=== PATIENT | female | born 2000 | race Caucasian/White ===

== ENCOUNTER → 2018-05-14 | Outpatient (CLI) | payer BC, MEDICAID ==
--- NOTE | 2018-05-15 09:19 | Diagnostic Imaging Report ---
INDICATION: Size and dates TECHNIQUE: Multiple real-time grayscale images were obtained over the gravid uterus. COMPARISON: 03/26/2018 FINDINGS: There is a single living intrauterine in breech presentation. Normal volume of amniotic fluid. Placenta is anterior. No previa. The anatomical survey is limited due to position. Four-chamber heart and spine were not well seen. Remainder of the anatomical survey is unremarkable. This includes a three-vessel cord. The heart rate is 147 beats per minute and regular. The maternal adnexa is unremarkable. The biometry correlates with gestational age of 19 weeks 5 days. Biometrical measurements are as follows: Biparietal 4.4 cm, age 19 weeks 3 days. Head circumference 16.4 cm, age 19 weeks 1 days. Abdominal circumference 15.2 cm, age 20 weeks 3 days. Femur length 3.1 cm, age 19 weeks 6 days. Sonographic estimate age: 19 weeks 5 days. Sonographic estimated date of delivery: 10/03/18. Estimated Weight: 324 gm (+/- 47 gm). LMP percentile: 52%. heart rate: 147 beats per minute. number: 1 of 1. IMPRESSION: Single living intrauterine with sonographically gestational age of 19 weeks 5 days and estimated confinement of October 03, 2018 Limited anatomical survey due to positioning. Four chamber heart and spine were not well visualized. Dictated by: Dictated on workstation # [id number]
== END ==
LOC: RAD 16:00
PROVIDERS: ATTEND Obstetrics & Gynecology
DX: O26.842 Uterine size-date discrepancy, second trimester (principal); Z3A.19 19 weeks gestation of pregnancy
CPT/HCPCS: 76805

== ENCOUNTER 2018-09-05 22:22 | Outpatient (CLI) | payer BC, MEDICAID ==
[~2018-09-05] VITALS: Ht 172.7 cm; Wt 79.1 kg
[2018-09-06] MEDS ORDERED: D5 LR IV SOLUTION 1,000 ML IV SCH (00:45)
[2018-09-06] MEDS ORDERED: D5 LR IV SOLUTION 1,000 ML IV ONE ×2 (00:46→03:01)
[2018-09-06 01:17] LABS: BASOPHILS % (AUTO) 0 % (0-10); EOSINOPHILS % (AUTO) 0 % (0-10); HEMATOCRIT 33 % (35-52); HEMOGLOBIN 11.4 G/DL (11.5-16.0); LYMPHOCYTES # (AUTO) 1.5 X 10^3 (1.0-4.0); LYMPHOCYTES % (AUTO) 13 % (12-44); MEAN CORPUSCULAR HEMOGLOBIN 32 PG (25-34); MEAN CORPUSCULAR HGB CONC 35 G/DL (32-36); MEAN CORPUSCULAR VOLUME 92 FL (80-99); MEAN PLATELET VOLUME 9.5 FL (7.4-10.4); MONOCYTES # (AUTO) 1.2 X 10^3 (0.0-1.0); MONOCYTES % (AUTO) 10 % (0-12); NEUTROPHILS # (AUTO) 8.9 X 10^3 (1.8-7.8); NEUTROPHILS % (AUTO) 76 % (42-75); PLATELET COUNT 222 10^3/uL (130-400); RED BLOOD COUNT 3.59 10^6/uL (4.35-5.85); WHITE BLOOD COUNT 11.7 10^3/uL (4.3-11.0)
[2018-09-06 01:40] VITALS: BP 108/53
[2018-09-06 02:17] LABS: BILIRUBIN,URINE NEGATIVE (NEGATIVE); CLARITY,URINE SLIGHTLY CLOUDY; COLOR,URINE YELLOW; GLUCOSE, URINE (UA) NEGATIVE (NEGATIVE); KETONES,URINE NEGATIVE (NEGATIVE); LEUKOCYTE ESTERASE ,URINE 1+ (NEGATIVE); NITRITE,URINE NEGATIVE (NEGATIVE); PH,URINE 8 (5-9); PROTEIN,URINE NEGATIVE (NEGATIVE); UROBILINOGEN,URINE NORMAL (NORMAL)
[2018-09-06 02:25] LABS: WBC,URINE 0-2 /HPF
[2018-09-06 02:26] LABS: AMORPHOUS SEDIMENT,UR MOD AMOR PHOSPHATE /LPF; BACTERIA,URINE TRACE /HPF
[2018-09-06] MEDS: D5 LR IV SOLUTION 1,000 ML IV SCH ×2 (03:15→09:22)
[2018-09-06] MEDS ORDERED: BUTORPHANOL INJ 2 MG/ML (STADOL) VIAL ONE (03:43)
[2018-09-06] MEDS ORDERED: BUTORPHANOL INJ 2 MG/ML (STADOL) VIAL IV ONE (03:45)
[2018-09-06 05:45] VITALS: BP 118/71
[2018-09-06 08:08] VITALS: BP 125/67
--- NOTE | 2018-09-06 09:15 | History & Physical ---
History and Physical Date Seen by Provider: Sep 06, 2018 Time Seen by Provider: 09:10 This patient is a 18-year-old G1 white female patient of Dr. Moura. She was admitted last evening with complaint of abdominal pain and contractions. She was found to have a fairly significant vaginal bleeding. This bleeding apparently began after her presentation and after her cervix was checked. Patient denies rupture membranes or bleeding prior to presentation. Patient has had no specific problems with this . Her appetite is normal she denies urinary frequency pain or urgency. She's had no problems with diarrhea or constipation. Her pain has waxed and waned through the night.. She has had inconsistent and irregular contractions. She has shown no cervical change during the period of evaluation. She indicates that her pain has improved somewhat this morning. She currently describes more of a diffuse abdominal and pelvic pain from the right and left lateral upper quadrants down to the lower quadrants and inguinal ligaments and pelvis. Allergies are none Medications are vitamins Medical social and surgical histories are per the antepartum record HEENT exam is normal. Patient does not appear uncomfortable. Neck is supple no lymphadenopathy no thyromegaly Abdomen is gravid soft nontender nondistended. There is no guarding rebound or rigidity. Extremities show no clubbing or cyanosis. There is no Homans sign. Pelvic exam per labor and delivery nurse on serial exams that show a cervix 1 cm dilated 60 percent effaced with a vertex presentation and no change on serial exams monitor shows a normal heart rate pattern with no decelerations and irregular inconsistent contractions Laboratory Tests Test 09/06/18 01:00 09/06/18 02:00 Range/Units White Blood Count 11.7 H 4.3-11.0 10^3/uL Red Blood Count 3.59 L 4.35-5.85 10^6/uL Hemoglobin 11.4 L 11.5-16.0 G/DL Hematocrit 33 L 35-52 % Mean Corpuscular Volume 92 80-99 FL Mean Corpuscular Hemoglobin 32 25-34 PG Mean Corpuscular Hemoglobin Concent 35 32-36 G/DL Red Cell Distribution Width 13.0 10.0-14.5 % Platelet Count 222 130-400 10^3/uL Mean Platelet Volume 9.5 7.4-10.4 FL Neutrophils (%) (Auto) 76 H 42-75 % Lymphocytes (%) (Auto) 13 12-44 % Monocytes (%) (Auto) 10 0-12 % Eosinophils (%) (Auto) 0 0-10 % Basophils (%) (Auto) 0 0-10 % Neutrophils # (Auto) 8.9 H 1.8-7.8 X 10^3 Lymphocytes # (Auto) 1.5 1.0-4.0 X 10^3 Monocytes # (Auto) 1.2 H 0.0-1.0 X 10^3 Eosinophils # (Auto) 0.0 0.0-0.3 10^3/uL Basophils # (Auto) 0.0 0.0-0.1 10^3/uL Urine Color YELLOW Urine Clarity SLIGHTLY CLOUDY Urine pH 8 5-9 Urine Specific [place] 1.010 L 1.016-1.022 Urine Protein NEGATIVE NEGATIVE Urine Glucose (UA) NEGATIVE NEGATIVE Urine Ketones NEGATIVE NEGATIVE Urine Nitrite NEGATIVE NEGATIVE Urine Bilirubin NEGATIVE NEGATIVE Urine Urobilinogen NORMAL NORMAL MG/DL Urine Leukocyte Esterase 1+ H NEGATIVE Urine RBC (Auto) 5+ H NEGATIVE Urine RBC 2-5 H /HPF Urine WBC 0-2 /HPF Urine Squamous Epithelial Cells 2-5 /HPF Urine Crystals PRESENT H /LPF Urine Amorphous Sediment MOD YUMIKO PHOSPHATE H /LPF Urine Bacteria TRACE /HPF Urine Casts NONE /LPF Urine Mucus NEGATIVE /LPF Urine Culture Indicated NO Assessment and plan 36 week intrauterine with abdominal pain and pelvic pain and vaginal bleeding. Concern has been for the possibility of placental abruption. History exam are consistent with myalgia of . Patient's bleeding has improved. We will obtain an ultrasound to evaluate the fetus the uterine anatomy and pelvic anatomy as well as the maternal kidneys and ureters. At this point we will continue supportive care and observation. Further management will be predicated on the ultrasound results and her status and condition through the day 36 week with threatened labor Allergies and Home Medications Allergies Coded Allergies: No Known Drug Allergies (Unverified , 09/05/18) Patient Home Medication List Home Medication List Reviewed: Yes MEG KIRK MD Sep 06, 2018 09:15
[2018-09-06] MEDS ORDERED: CHLORASEPTIC LOZENGE MM PRN (11:30)
--- NOTE | 2018-09-06 13:23 | Diagnostic Imaging Report ---
INDICATION: , vaginal bleeding with pain. TECHNIQUE: Multiple real-time grayscale images were obtained over the gravid uterus. COMPARISON: 05/14/2018 FINDINGS: Randolph gestation is in cephalic position today measuring 36 weeks 6 days reflecting normal growth from initial exam. The placenta is anterior with no abruption or previa. Heart rate 132 beats per minute. LMP percentile 62nd percent. Amniotic fluid index 8.5 within normal limits. Randolph gestation receives a normal 8 out of 8 biophysical profile. Biometrical measurements are as follows: Biparietal 8.85 cm, age 35 weeks 6 days. Head circumference 32.91 cm, age 37 weeks 3 days. Abdominal circumference 32.53 cm, age 36 weeks 4 days. Femur length 7.23 cm, age 37 weeks 1 days. Sonographic estimate age: 36 weeks 6 days. Sonographic estimated date of delivery: 09/28/18. Estimated Weight: 2987 gm (+/- 436 gm). LMP percentile: 62%. heart rate: 132 beats per minute. number: 1 of 1. IMPRESSION: 1. Normal 8 out of 8 biophysical profile. 2. Cephalic position randolph viable IUP showed normal interval growth. No pathological finding was revealed. Dictated by: Dictated on workstation # [id number]
--- NOTE | 2018-09-06 13:24 | Diagnostic Imaging Report ---
PROCEDURE: US Renal Bilateral. TECHNIQUE: Multiple real-time grayscale images were obtained over the kidneys in various projections bilaterally. INDICATION: Vaginal bleeding and pelvic pain. FINDINGS: The right kidney measures 13.3 cm in length and the left 12.5 cm in length. There is mild hydronephrosis present bilaterally. At the urinary bladder, the right ureteral jet was demonstrated. The left could not be visualized. The ureters are not evident within the pelvis. The appendix could not be sonographically demonstrated. IMPRESSION: 1. Mild bilateral hydronephrosis. There is visualization of the right ureteral jet but not the left. This is favored to be related to the patient's current gestation. The distal ureters cannot be visualized within the pelvis. The appendix was not sonographically visible. Dictated by: Dictated on workstation # [id number]
[2018-09-10] MEDS ORDERED: DOCU100C37 PO (08:10)
[2018-09-10] MEDS ORDERED: ACHD5005 PO (08:10)
[2018-09-10] MEDS ORDERED: IBUP-844 PO (08:10)
[2018-09-10] MEDS ORDERED: FERR325T18 PO (08:10)
== END 2018-09-06 14:38 | disposition home or self-care (01) ==
LOC: WSo 22:22 → LDRP 22:22 → WSo 09-06 14:38
PROVIDERS: ATTEND Obstetrics & Gynecology
DX: O47.03 False labor before 37 completed weeks of gestation, third trimester (principal); Z3A.36 36 weeks gestation of pregnancy
CPT/HCPCS: 36415; 76770; 76805; 76819; 81000; 85025; 96361; 96374; 99214

== ENCOUNTER 2018-09-10 01:10 | Inpatient (IN) | payer BC, MEDICAID ==
[~2018-09-10] VITALS: Ht 172.7 cm; Wt 79.1 kg
[2018-09-10] VITALS (59 sets, daily range): BP systolic 105–139; BP diastolic 55–85
--- NOTE | 2018-09-10 01:10 | NUR ---
MICHELLE MADERA presented to unit via wheelchair from ED, accompanied by mother, with c/o POSS CONTRACTIONS and leaking of fluid 37 WKS PREG. MICHELLE MADERA weighed, gowned, voided, and to bed. EFHM and TOCO applied, VS taken. MICHELLE MADERA oriented to bed controls, call light, TV, heat, and A/C controls.
--- NOTE | 2018-09-10 01:35 | NUR ---
Dr. Griffin called and informed of pt's arrival and status. Dr. Griffin states that she can be admitted, but Dr. Moura should be called to take over cares.
--- NOTE | 2018-09-10 01:37 | NUR ---
Dr. Moura called and informed that pt is here. , 36/. Informed that pt is ruptured and elvira every 1-4 minutes. Talked about FHT's and GBS status. Dr. Moura states that she can be admitted and that she can have an epidural whenever she wants it.
[2018-09-10] MEDS ORDERED: NS IV 1000 ML 1,000 ML IV SCH (01:43)
[2018-09-10] MEDS ORDERED: D5 LR IV SOLUTION 1,000 ML IV SCH ×2 (01:43)
[2018-09-10] MEDS ORDERED: D5 LR IV SOLUTION 1,000 ML IV ONE (01:45)
[2018-09-10] MEDS ORDERED: MINERAL OIL CONCENTRATE 99.9% 15 ML UDC PO PRN (01:45)
[2018-09-10 02:02] LABS: BASOPHILS % (AUTO) 0 % (0-10); EOSINOPHILS # (AUTO) 0.1 10^3/uL (0.0-0.3); EOSINOPHILS % (AUTO) 1 % (0-10); HEMATOCRIT 34 % (35-52); HEMOGLOBIN 11.6 G/DL (11.5-16.0); LYMPHOCYTES # (AUTO) 2.3 X 10^3 (1.0-4.0); LYMPHOCYTES % (AUTO) 17 % (12-44); MEAN CORPUSCULAR HEMOGLOBIN 31 PG (25-34); MEAN CORPUSCULAR HGB CONC 34 G/DL (32-36); MEAN CORPUSCULAR VOLUME 90 FL (80-99); MEAN PLATELET VOLUME 9.3 FL (7.4-10.4); MONOCYTES # (AUTO) 1.2 X 10^3 (0.0-1.0); MONOCYTES % (AUTO) 9 % (0-12); NEUTROPHILS # (AUTO) 9.9 X 10^3 (1.8-7.8); NEUTROPHILS % (AUTO) 74 % (42-75); PLATELET COUNT 246 10^3/uL (130-400); RED BLOOD COUNT 3.75 10^6/uL (4.35-5.85); RED CELL DISTRIBUTION WIDTH 12.9 % (10.0-14.5); WHITE BLOOD COUNT 13.5 10^3/uL (4.3-11.0)
--- OUTSIDE RECORDS SUMMARY | 2018-09-10 02:10 | XMS REPORT | Referral Summary ---
Author Author [facility] Organization [facility] Address Unknown Phone Unavailable Care Team Providers Care Airline Pilot Flight Instructor Name Role Phone No PCP, Pt States PCP Encounter VC Date(s): 12/03/17 - 12/03/17 [facility] [address] [place] [address] [place] Encounter Diagnosis Cervicitis (Discharge Diagnosis) - 12/03/17 PID (pelvic inflammatory disease) (Discharge Diagnosis) - 12/03/17 Discharge Disposition: 01-Home or Self Care Attending Physician: Jason Gonzalez MD Admitting Physician: Jason Gonzalez MD Vital Signs Most recent to 1 oldest [Reference Range]: Temperature Oral 36.5 degC [35.8-37.3 degC] (12/03/17 8:38 PM) Peripheral Pulse 63 bpm Rate [60-100 bpm] (12/03/17 8:38 PM) Respiratory Rate 22 br/min [14-20 br/min] *HI* (12/03/17 8:38 PM) Blood Pressure 128/78 mmHg [90-140/60-90 mmHg] (12/03/17 8:38 PM) SpO2 97 % (12/03/17 8:38 PM) Problem List No Known Problems Allergies, Adverse Reactions, Alerts No Known Allergies Medications doxycycline hyclate 100 mg oral tablet 100 mg 1 tabs, Oral, BID, X 10 days, # 20 tabs, 0 Refill(s) Start Date: 12/03/17 Stop Date: 12/13/17 Status: Ordered Results Chemistry Most recent to 1 oldest [Reference Range]: Screen, Negative Urine NPT (12/03/17 9:33 PM) Urinalysis Most recent to 1 oldest [Reference Range]: UA Color Straw (12/03/17 9:30 PM) UA Appear Clear (12/03/17 9:30 PM) UA pH [5.0-8.0] 6.0 (12/03/17 9:30 PM) UA Leuk Est Negative [Negative] (12/03/17 9:30 PM) UA Nitrite Negative [Negative] (12/03/17 9:30 PM) UA Protein Negative [Negative] (12/03/17 9:30 PM) UA Glucose Negative [Negative] (12/03/17 9:30 PM) UA Ketones Negative [Negative] (12/03/17 9:30 PM) UA Urobilinogen Negative [<1.0] (12/03/17 9:30 PM) UA Bili [Negative] Negative (12/03/17 9:30 PM) UA Blood [Negative] Negative (12/03/17 9:30 PM) UA Spec Grav 1.010 [1.003-1.030] (12/03/17 9:30 PM) Type Clean Catch (12/03/17 9:30 PM) Microbiology Reports TEST: Affirm Vaginitis Panel STATUS: Auth (Verified) BODY SITE: SOURCE: Cervix/Vaginal COLLECTED DATE/TIME: 12/03/17 9:15 PM Affirm Vaginitis Panel Positive for Gardnerella vaginalis Negative for Trichomonas vaginalis Negative for Simi species Immunizations No data available for this section Procedures No data available for this section Social History Social History Type Response Smoking Status Current every day smoker; Type: Cigarettes entered on: 02/27/17 Assessment and Plan No data available for this section
--- OUTSIDE RECORDS SUMMARY | 2018-09-10 02:10 | XMS REPORT | Referral Summary ---
Author Author [facility] Organization [facility] Address Unknown Phone Unavailable Encounter VC WILLS [id number] Date(s): 02/27/17 - 02/27/[address] [facility] [address] [place], [place] [address] Discharge Diagnosis: Insect bites Discharge Diagnosis: Stye external Discharge Disposition: 01-Home or Self Care Attending Physician: Ehsan Barrow DO Admitting Physician: Ehsan Barrow DO Vital Signs Most recent to 1 oldest [Reference Range]: Temperature Oral 37 degC [35.8-37.3 degC] (02/27/17 9:51 AM) Peripheral Pulse 89 bpm Rate [60-100 bpm] (02/27/17 9:51 AM) Respiratory Rate 18 br/min [14-20 br/min] (02/27/17 9:51 AM) Blood Pressure 118/75 mmHg [90-140/60-90 mmHg] (02/27/17 9:10 AM) SpO2 99 % (02/27/17 9:51 AM) Problem List No Known Problems Allergies, Adverse Reactions, Alerts No Known Allergies Medications erythromycin 0.5% ophthalmic ointment See Instructions, 0.5 inch Eye-LEFT QID x 7 days after warm compress to eye lid , # 3.5 g, 0 Refill(s) Start Date: 02/27/17 Stop Date: 03/09/17 Status: Ordered predniSONE 20 mg oral tablet 40 mg 2 tabs, Oral, Daily, X 5 days, # 10 tabs, 0 Refill(s) Start Date: 02/27/17 Stop Date: 03/04/17 Status: Ordered Results No data available for this section Immunizations No data available for this section Procedures No data available for this section Social History Social History Type Response Smoking Status Current every day smoker; Type: Cigarettes Assessment and Plan No data available for this section
--- OUTSIDE RECORDS SUMMARY | 2018-09-10 02:10 | XMS REPORT | Referral Summary ---
Author Author [facility] Address Unknown Phone Unavailable Care Team Providers Care Inside Contractor Sales Name Role Phone Ceasar Urbina PCP Encounter VC Date(s): 03/26/18 - 03/26/18 [facility] [address] [place] [address] Encounter Diagnosis Supervision of other normal , antepartum (Discharge Diagnosis) - Discharge Disposition: 01-Home or Self Care Attending Physician: Willie Baez MD Admitting Physician: Ceasar Urbina MD Vital Signs Most recent to 1 oldest [Reference Range]: Temperature Oral 36.9 degC [35.8-37.3 degC] (03/26/18 1:10 PM) Peripheral Pulse 80 bpm Rate [60-100 bpm] (03/26/18 1:10 PM) Respiratory Rate 16 br/min [14-20 br/min] (03/26/18 1:10 PM) Blood Pressure 90/50 mmHg [90-140/60-90 mmHg] (03/26/18 1:10 PM) Problem List Condition Effective Dates Status Health Status Informant (Confirmed) 12/08/17 Active Allergies, Adverse Reactions, Alerts No Known Allergies Medications 1 oral capsule 1 caps, Oral, Daily, # 30 caps, 0 Refill(s) Start Date: 03/26/18 Status: Ordered Results Hematology Most recent to 1 oldest [Reference Range]: WBC [4.8-10.8 10.0 10*3/uL 10*3/uL] (03/26/18 1:20 PM) RBC [4.00-5.20] 3.85 *LOW* (03/26/18 1:20 PM) Hgb [12.0-16.0 11.7 gm/dL gm/dL] *LOW* (03/26/18 1:20 PM) Hct [37.0-47.0 %] 34.9 % *LOW* (03/26/18 1:20 PM) MCV [82.0-99.0 fL] 90.6 fL (03/26/18 1:20 PM) MCH [27.0-32.0 pg] 30.4 pg (03/26/18 1:20 PM) MCHC [32.0-36.0 33.5 gm/dL gm/dL] (03/26/18 1:20 PM) RDW [11.5-14.5 %] 12.4 % (03/26/18 1:20 PM) Platelet [150-400 196 10*3/uL 10*3/uL] (03/26/18 1:20 PM) MPV [8.8-14.8 fL] 10.7 fL (03/26/18 1:20 PM) Immature 0.1 % Granulocytes (03/26/18 1:20 PM) [0.0-1.0 %] Neutrophils [51-75 69 % %] (03/26/18 1:20 PM) Lymphocytes [20-46 22 % %] (03/26/18 1:20 PM) Monocytes [4-11 %] 7 % (03/26/18 1:20 PM) Eosinophils [0-4 %] 1 % (03/26/18 1:20 PM) Basophils [0-2 %] 0 % (03/26/18 1:20 PM) Neutro Absolute 6.89 [1.90-7.00] (03/26/18 1:20 PM) Lymph Absolute 2.24 [0.80-3.30] (03/26/18 1:20 PM) Labette Absolute 0.72 [0.30-1.00] (03/26/18 1:20 PM) Eos Absolute 0.12 [0.00-0.50] (03/26/18 1:20 PM) Baso Absolute 0.02 [0.00-0.20] (03/26/18 1:20 PM) Nucleated RBC 0.0 /100 WBC Automated [0 /100 (03/26/18 1:20 PM) WBC] Chemistry Most recent to 1 oldest [Reference Range]: Glucose Lvl [70-99 91 mg/dL mg/dL] (03/26/18 1:20 PM) U Beta hCG Ql Negative (03/26/18 1:00 PM) Hep Bs Ag Negative (03/26/18 1:20 PM) HIV 1 and 2 Abs Negative (03/26/18 1:20 PM) Urinalysis Most recent to 1 oldest [Reference Range]: UA Color Yellow (03/26/18 1:00 PM) UA Appear Clear (03/26/18 1:00 PM) UA pH [5.0-8.0] 6.0 (03/26/18 1:00 PM) UA Leuk Est Pos 2+ [Negative] *ABN* (03/26/18 1:00 PM) UA Nitrite Negative [Negative] (03/26/18 1:00 PM) UA Protein Negative [Negative] (03/26/18 1:00 PM) UA Glucose Negative [Negative] (03/26/18 1:00 PM) UA Ketones Negative [Negative] (03/26/18 1:00 PM) UA Urobilinogen 0.2 mg/dL [<=1.0 mg/dL] (03/26/18 1:00 PM) UA Bili [Negative] Negative (03/26/18 1:00 PM) UA Blood [Negative] Trace *ABN* (03/26/18 1:00 PM) UA Spec Grav 1.020 [1.003-1.030] (03/26/18 1:00 PM) Type Clean Catch (03/26/18 1:00 PM) Blood Bank Results Most recent to 1 oldest [Reference Range]: ABO/Rh A POS (03/26/18 1:20 PM) Antibody Screen Tube NEG (03/26/18 1:20 PM) Immunizations No data available for this section Procedures No data available for this section Social History Social History Type Response Smoking Status Current every day smoker; Type: Cigarettes entered on: 02/27/17 Assessment and Plan Extracted from: Title: Ambulatory Patient Education Author: Ceasar Urbina MD Date: 03/26/18 The following Patient Education Materials have been given to the patient: Obstetrics and Gynecology Care WHAT IS CARE? care is the process of caring for a woman before she gives . care makes sure that she and her baby remain as healthy as possible throughout . care may be provided by a human resources support specialist, [facility] practice health care provider, or a childbirth and specialist ( assayer helper). care may include physical examinations, testing, treatments, and education on nutrition, lifestyle, and social support services. WHY IS CARE SO IMPORTANT? Early and consistent care increases the chance that you and your baby will remain healthy throughout your . This type of care also decreases a baby's risk of being born too early (prematurely), or being born smaller than expected (small for gestational age). Any underlying medical conditions you may have that could pose a risk during your are discussed during care visits. You will also be monitored regularly for any new conditions that may arise during your so they can be treated quickly and effectively. WHAT HAPPENS DURING CARE VISITS? care visits may include the following: Discussion Tell your health care provider about any new signs or symptoms you have experienced since your last visit. These might include: Nausea or vomiting. Increased or decreased level of energy. Difficulty sleeping. Back or leg pain. Weight changes. Frequent urination. Shortness of breath with physical activity. Changes in your skin, such as the development of a rash or itchiness. Vaginal discharge or bleeding. Feelings of excitement or nervousness. Changes in your baby's movements. You may want to write down any questions or topics you want to discuss with your health care provider and bring them with you to your appointment. Examination During your first care visit, you will likely have a complete physical exam. Your health care provider will often examine your vagina, cervix, and the position of your uterus, as well as check your heart, lungs, and other body systems. As your progresses, your health care provider will measure the size of your uterus and your baby's position inside your uterus. He or she may also examine you for early signs of labor. Your visits may also include checking your blood pressure and, after about 10 12 weeks of , listening to your baby's heartbeat. Testing Regular testing often includes: Urinalysis. This checks your urine for glucose, protein, or signs of infection. Blood count. This checks the levels of white and red blood cells in your body. Tests for sexually transmitted infections (STIs). Testing for STIs at the beginning of is routinely done and is required in many states. Antibody testing. You will be checked to see if you are immune to certain illnesses, such as rubella, that can affect a developing fetus. Glucose screen. Around 24 28 weeks of , your blood glucose level will be checked for signs of gestational diabetes. Follow-up tests may be recommended. Group B strep. This is a bacteria that is commonly found inside a woman's vagina. This test will inform your health care provider if you need an antibiotic to reduce the amount of this bacteria in your body prior to labor and childbirth. Ultrasound. Many women undergo an ultrasound screening around 18 20 weeks of to evaluate the health of the fetus and check for any developmental abnormalities. HIV (human immunodeficiency virus) testing. Early in your , you will be screened for HIV. If you are at high risk for HIV, this test may be repeated during your third trimester of . You may be offered other testing based on your age, personal or family medical history, or other factors. HOW OFTEN SHOULD I PLAN TO SEE MY HEALTH CARE PROVIDER FOR CARE? Your care check-up schedule depends on any medical conditions you have before, or develop during, your . If you do not have any underlying medical conditions, you will likely be seen for checkups: Monthly, during the first 6 months of . Twice a month during months 7 and 8 of . Weekly starting in the 9th month of and until delivery. If you develop signs of early labor or other concerning signs or symptoms, you may need to see your health care provider more often. Ask your health care provider what care schedule is best for you. WHAT CAN I DO TO KEEP MYSELF AND MY BABY HEALTHY POSSIBLE DURING MY ? Take a vitamin containing 400 micrograms (0.4 mg) of folic acid every day. Your health care provider may also ask you to take additional vitamins such as iodine, vitamin D, iron, copper, and zinc. Take 1500 2000 mg of calcium daily starting at your 20th week of until you deliver your baby. Make sure you are up to date on your vaccinations. Unless directed otherwise by your health care provider: You should receive a tetanus, diphtheria, and pertussis (Tdap) vaccination between the 27th and 36th week of your , regardless of when your last Tdap immunization occurred. This helps protect your baby from whooping cough ( pertussis) after he or she is born. You should receive an annual inactivated influenza vaccine (IIV) to help protect you and your baby from influenza. This can be done at any point during your . Eat a well-rounded diet that includes: Fresh fruits and vegetables. Lean proteins. Calcium-rich foods such as milk, yogurt, hard cheeses, and dark, leafy greens. Whole grain breads. Do noteat seafood high in mercury, including: Swordfish. Tilefish. Shark. Kendrick mackerel. More than 6 oz tuna per week. Do not eat: Raw or undercooked meats or eggs. Unpasteurized foods, such as soft cheeses (brie, blue, or feta), juices, and milks. Lunch meats. Hot dogs that have not been heated until they are steaming. Drink enough water to keep your urine clear or pale yellow. For many women, this may be 10 or more 8 oz glasses of water each day. Keeping yourself hydrated helps deliver nutrients to your baby and may prevent the start of pre- term uterine contractions. Do not use any tobacco products including cigarettes, chewing tobacco, or electronic cigarettes. If you need help quitting, ask your health care provider. Do not drink beverages containing alcohol. No safe level of alcohol consumption during has been determined. Do not use any illegal drugs. These can harm your developing baby or cause a miscarriage. Ask your health care provider or pharmacist before taking any prescription or pdyp-sur-aqoclyt medicines, herbs, or supplements. Limit your caffeine intake to no more than 200 mg per day. Exercise. Unless told otherwise by your health care provider, try to get 30 minutes of moderate exercise most days of the week. Do not do high-impact activities, contact sports, or activities with a high risk of falling, such as horseback riding or downhill skiing. Get plenty of rest. Avoid anything that raises your body temperature, such as hot tubs and saunas. If you own a cat, do not empty its litter box. Bacteria contained in cat feces can cause an infection called toxoplasmosis. This can result in serious harm to the fetus. Stay away from chemicals such as insecticides, lead, mercury, and cleaning or paint products that contain solvents. Do not have any X-rays taken unless medically necessary. Take a childbirth and preparation class. Ask your health care provider if you need a referral or recommendation. This information is not intended to replace advice given to you by your health care provider. Make sure you discuss any questions you have with your health care provider. Document Released: 09/03/2004 Document Revised: 12/23/2016 Document Reviewed: [email or web address] Patient Education 2017 [employer] No follow up information was provided.
--- OUTSIDE RECORDS SUMMARY | 2018-09-10 02:10 | XMS REPORT | Referral Summary ---
Author Author [facility] Organization [facility] Address Unknown Phone Unavailable Care Team Providers Care Loftsman Name Role Phone No PCP, Pt States PCP Encounter VC Date(s): 05/12/17 - 05/12/[address] [facility] [address] [place], [place] [address] Discharge Disposition: Without Being Seen Vital Signs Most recent to 1 oldest [Reference Range]: Temperature Oral 36.7 degC [35.8-37.3 degC] (05/12/17 7:39 PM) Peripheral Pulse 90 bpm Rate [60-100 bpm] (05/12/17 7:39 PM) Respiratory Rate 24 br/min [14-20 br/min] *HI* (05/12/17 7:39 PM) Blood Pressure 126/81 mmHg [90-140/60-90 mmHg] (05/12/17 7:39 PM) SpO2 100 % (05/12/17 7:39 PM) Problem List No Known Problems Allergies, Adverse Reactions, Alerts No Known Allergies Medications No data available for this section Results No data available for this section Immunizations No data available for this section Procedures No data available for this section Social History Social History Type Response Smoking Status Current every day smoker; Type: Cigarettes Assessment and Plan No data available for this section
--- OUTSIDE RECORDS SUMMARY | 2018-09-10 02:11 | XMS REPORT | Continuity of Care Document ---
Author Author [facility] Organization [facility] Address Unknown Phone Unavailable Allergies Active Description Code Type Severity Reaction Onset Reported/Identified Relationship to Patient Clinical Status Yes NO KNOWN DRUG ALLERGIES NO KNOWN DRUG ALLERG UNKNOWN Yes NO KNOWN DRUG ALLERGIES UNKNOWN NO KNOWN DRUG ALLERG Yes No Known Allergies NKMA N/A N/A 02/27/2017 Yes No Known Allergies NKMA N/A N/A 02/27/2017 Yes No Known Allergies No Known Allergies Drug Allergy Unknown N/A 2017 Medications Medication Packaging Start Date Stop Date Route Dosage Sig predniSONE(predniSONE 20 mg oral tablet) 2 tabs 02/27/2017 03/04/2017 Oral 40 mg 40 mg=2 tabs, Oral, Daily, for 5 days, 10 tabs, 0 Refill(s) erythromycin ophthalmic(erythromycin 0.5% ophthalmic ointment) 02/27/2017 03/09/2017 See Instructions, 0.5 inch Eye-LEFT QID x 7 days after warm compress to eye lid, 3.5 g, 0 Refill(s) cefTRIAXone(Rocephin) 5 mL 201712/03/2017 IntraMuscular 250 mg 250 mg=5 mL, IntraMuscular, Once azithromycin(azithromycin) 4 tabs 12/03/2017 12/03/2017 Oral 1,000 mg 1,000 mg=4 tabs, Oral, Once doxycycline(doxycycline hyclate 100 mg oral tablet) 1 tabs 12/03/2017 12/13/2017 Oral 100 mg 100 mg=1 tabs, Oral, BID, for 10 days, 20 tabs, 0 Refill(s) Problems Date Dx Coded Attending Type Code Diagnosis Diagnosed By 03/03/2017 Barrow Jacob Final F17.210 Nicotine dependence, cigarettes, uncomplicated 03/03/2017 Barrow Jacob Final H00.014 Hordeolum externum left upper eyelid 03/03/2017 Barrow Jacob Final S80.861A Insect bite (nonvenomous), right lower leg, initial encounter 03/03/2017 Barrow Jacob Reason S80.862A Insect bite (nonvenomous), left lower leg, initial encounter 03/03/2017 Barrow Jacob Final W57.XXXA Bitten or stung by nonvenomous insect and other nonvenomous arthropods, ini 05/14/2017 Barrow Jacob Reason R69 Illness, unspecified 08/12/2017 W H00.12 Chalazion right lower eyelid 08/12/2017 W H00.14 Chalazion left upper eyelid 08/12/2017 W H00.12 Chalazion right lower eyelid 08/12/2017 W H00.14 Chalazion of left upper eyelid 08/12/2017 W H00.12 Chalazion right lower eyelid 08/12/2017 W H00.14 Chalazion of left upper eyelid 08/19/2017 W H00.12 Chalazion right lower eyelid 08/19/2017 W H00.14 Chalazion of left upper eyelid 08/19/2017 W H00.12 Chalazion right lower eyelid 08/19/2017 W H00.14 Chalazion of left upper eyelid 12/05/2017 Gonzalez Howard Final F17.210 Nicotine dependence, cigarettes, uncomplicated 12/05/2017 Gonzalez Howard Final N72 Inflammatory disease of cervix uteri 12/05/2017 Gonzalez Howard Reason N89.8 Other specified noninflammatory disorders of vagina 12/05/2017 Gonzalez Howard Final Z32.02 Encounter for test, result negative 03/26/2018 Willie Baez Final Z34.80 Encounter for supervision of other normal , unspecified trimester 05/17/2018 KATE BARNETT ALETHEA S Ot O26.842 UTERINE SIZE-DATE DISCREPANCY, SECOND TR 05/17/2018 ALETHEA LOVE DO Ot Z3A.19 19 WEEKS GESTATION OF 05/28/2018 UNLISTED, UNLISTED A V70.5 HEALTH EXAMINATION OF DEFINED SUBPOPULATIONS 05/28/2018 UNLISTED, UNLISTED A Z02.1 ENCOUNTER FOR PRE-EMPLOYMENT EXAMINATION 06/02/2018 KATE BARNETT ALETHEA Gil Ot O26.842 UTERINE SIZE-DATE DISCREPANCY, SECOND TR 06/02/2018 KATE BARNETT ALETHEA S Ot Z3A.19 19 WEEKS GESTATION OF 06/02/2018 KATE BARNETT ALETHEA Gil Ot O26.842 UTERINE SIZE-DATE DISCREPANCY, SECOND TR 06/02/2018 FENECH DO, ALETHEA S Ot Z3A.19 19 WEEKS GESTATION OF 06/10/2018 FENECH DO, ALETHEA S Ot O26.842 UTERINE SIZE-DATE DISCREPANCY, SECOND TR 06/10/2018 FENECH DO, ALETHEA Gil Ot Z3A.19 19 WEEKS GESTATION OF 06/18/2018 FENECH DO, ALETHEA Gil Ot O26.842 UTERINE SIZE-DATE DISCREPANCY, SECOND TR 06/18/2018 FENECH DO, ALETHEA Gil Ot Z3A.19 19 WEEKS GESTATION OF 09/05/2018 FENECH DO, ALETHEA Gil Ot O26.842 UTERINE SIZE-DATE DISCREPANCY, SECOND TR 09/05/2018 FENECH DO, ALETHEA Gil Ot Z3A.19 19 WEEKS GESTATION OF Procedures Code Description [place] [address] REMOVE EYELID LESIONS 08/12/2017 3001 Initial ob visit 3001 03/26/2018 58496 Ultrasound, uterus , real time with image documentation, and maternal evaluation, first trimester (< 14 weeks 0 days), transabdominal approach; single or first gestation.. 03/26/2018 <section xmlns="urn:hl7-org:v3" xmlns:xsi="http://www.w3.org/2001/ XMLSchema-instance"> <templateId root="[id number]" /> < templateId root="[id number]" /> <code codeSystemName= "LOINC" codeSystem="[id number]" code="48290-2" displayName="Results" /> <title>Results</title> <text> <table> <thead> <tr> <th>Test</th> <th>Result</th> <th>Range</th> </tr> </thead> <tbody> <tr> <th colspan="10">Lab Card - 07:15</th> </tr> <tr> <td>LabCard</td> <td> Specimen submitted to [facility]. </td> <td /> </tr> <tr> < colspan="10">Urinalysis with reflex microscopic - 12/03/17 21:30</th> </tr> <tr> <td> Appearance</td> <td>Clear NA</td> <td /> </tr> < tr> <td>Bilirubin</td> <td>Negative NA</td> <td> Negative</td> </tr> <tr> <td>Blood</td> <td> Negative NA</td> <td>Negative</td> </tr> <tr> < td>Color</td> <td>Straw NA</td> <td /> </tr> <tr > <td>Glucose, Urine</td> <td>Negative </td> <td> Negative</td> </tr> <tr> <td>Ketones</td> <td> Negative </td> <td>Negative</td> </tr> <tr> <td> Leukocyte Esterase</td> <td>Negative NA</td> <td>Negative</td > </tr> <tr> <td>Nitrites</td> <td>Negative NA</ td> <td>Negative</td> </tr> <tr> <td>pH</td> <td>6.0 NA</td> <td>5.0-8.0</td> </tr> <tr> <td>Protein</td> <td>Negative NA</td> <td>Negative</td> </tr> <tr> <td>Specific [place]</td> <td>1.010 NA </td> <td>1.003-1.030</td> </tr> <tr> <td>UA Collection type</td> <td>Clean Catch NA</td> <td /> </ tr> <tr> <td>Urobilinogen</td> <td>Negative mg/dL</td> <td><1.0</td> </tr> <tr> < colspan="10"> Screen, Urine NPT - 12/03/17 21:33</th> </tr> <tr> <td> Screen, Urine NPT</td> <td>Negative NA</td> <td /> </tr> <tr> < colspan="10">WET [place] - 17:00</th> </tr> <tr> <td>Microbiology</td> < td> </td> <td /> </tr> <tr> < colspan="10"> GRAM STAIN - CHLAMYDIA DNA BY PCR - 12/21/17 17:00</th> </tr> <tr > <td>Microbiology</td> <td> </td> <td /> </tr > <tr> < colspan="10">URINALYSIS, ROUTINE - 12/21/17 17:00</th > </tr> <tr> <td>UA LEUKOCYTE ESTERASE DIPSTICK</td> <td>TRACE </td> <td>NEGATIVE</td> </tr> <tr> <td>UA NITRITE DIPSTICK</td> <td>NEGATIVE </td> <td> NEGATIVE</td> </tr> <tr> <td>UA PROTEIN DIPSTICK</td> <td>NEGATIVE </td> <td>NEGATIVE</td> </tr> <tr> <td>UA GLUCOSE DIPSTICK</td> <td>NEGATIVE </td> <td> NEGATIVE</td> </tr> <tr> <td>UA KETONE DIPSTICK</td> <td>NEGATIVE </td> <td>NEGATIVE</td> </tr> <tr> <td>UA UROBILINOGEN DIPSTICK</td> <td>NORMAL </td> <td> NORMAL</td> </tr> <tr> <td>UA BILIRUBIN DIPSTICK</td> <td>NEGATIVE </td> <td>NEGATIVE</td> </tr> <tr> <td>UA BLOOD DIPSTICK</td> <td>NEGATIVE </td> <td> NEGATIVE</td> </tr> <tr> <td>UA SPECIFIC GRAVITY</td> <td>1.006 </td> <td>1.015-1.025</td> </tr> <tr> <td>UR PH</td> <td>8.0 </td> <td>5.0-7.0</td> < /tr> <tr> < colspan="10">UA MICROSCOPIC - 12/21/17 17:00</th> </tr> <tr> <td>UA BACTERIA</td> <td>1+ </td> <td>NEGATIVE</td> </tr> <tr> <td>UA EPITHELIAL CELLS</td> <td>2+ epi/hpf</td> <td>0 - 1+</td> </tr> <tr> <td>UA RBC</td> <td>0-3 rbc/hpf</td> <td> 0 - 3</td> </tr> <tr> <td>UA VOLUME FOR EXAM</td> <td>12.0 mL</td> <td>(12mL STD)</td> </tr> <tr> <td>UA WBC</td> <td>2-5 wbc/hpf</td> <td>0 - 5</td> </tr> <tr> <th colspan="10">UR TEST - 12/21/17 17:00 </th> </tr> <tr> <td>UR TEST</td> <td> NEGATIVE </td> <td>NEGATIVE</td> </tr> <tr> < colspan="10">UR DRUGS OF ABUSE SCREEN - 12/21/17 17:00</th> </tr> <tr> <td>UR AMPHETAMINES SCREEN</td> <td>NEG (<1000 ng/mL ) </td> <td>NEGATIVE</td> </tr> <tr> <td>UR BARBITURATE SCREEN</td> <td>NEG (< 200 ng/mL) </td> <td> NEGATIVE</td> </tr> <tr> <td>DRUGS OF ABUSE SCREEN COMMENT</td> <td> </td> <td /> </tr> <tr> <td>UR OPIATES SCREEN</td> <td>NEG (< 300 ng/mL) </td> <td>NEGATIVE</td> </tr> <tr> <td>UR PHENCYCLIDINE (PCP) SCREEN</td> <td>NEG (< 25 ng/mL) </td> <td>NEGATIVE </td> </tr> <tr> <td>UR CANNABINOIDS (THC) SCREEN</td> <td>NEG (< 50 ng/mL) </td> <td>NEGATIVE</td> </tr> <tr> <td>UR COCAINE METABOLITE SCREEN</td> <td>NEG (& lt; 300 ng/mL) </td> <td>NEGATIVE</td> </tr> <tr> <td>UR METHADONE SCREEN</td> <td>NEG (< 300 ng/mL) </td> <td>NEGATIVE</td> </tr> <tr> <td>UR BENZODIAZEPINE SCREEN</td> <td>NEG (< 200 ng/mL) </td> <td>NEGATIVE</td> </tr> <tr> <th colspan="10">HIV - 12/21/17 17:34</th> </tr> <tr> <td>AB HIV 1 2</td> <td>NEGATIVE </ td> <td>NEGATIVE</td> </tr> <tr> <td>HIV 1 P24 AG</td> <td>NEGATIVE </td> <td>NEGATIVE</td> </tr> <tr> <th colspan="10">RAPID PLASMA REAGIN - 12/21/17 17:34</th> </tr> <tr> <td>RAPID PLASMA REAGIN</td> <td> NONREACTIVE </td> <td>NONREACTIVE</td> </tr> <tr> <th colspan="10">Urinalysis, Dipstick Only - 03/26/18 13:00</th> </tr > <tr> <td>Appearance</td> <td>Clear NA</td> < td /> </tr> <tr> <td>Bilirubin</td> <td> Negative NA</td> <td>Negative</td> </tr> <tr> < td>Blood</td> <td>Trace NA</td> <td>Negative</td> </tr > <tr> <td>Color</td> <td>Yellow NA</td> <td / > </tr> <tr> <td>Glucose, Urine</td> <td> Negative NA</td> <td>Negative</td> </tr> <tr> < td>Ketones</td> <td>Negative NA</td> <td>Negative</td> </tr> <tr> <td>Leukocyte Esterase</td> <td>Pos 2+ NA</ td> <td>Negative</td> </tr> <tr> <td>Nitrites</ td> <td>Negative NA</td> <td>Negative</td> </tr> <tr> <td>pH</td> <td>6.0 NA</td> <td>5.0-8.0</td> </tr> <tr> <td>Protein</td> <td>Negative NA</td > <td>Negative</td> </tr> <tr> <td>Specific [place]</td> <td>1.020 NA</td> <td>1.003-1.030</td> </ tr> <tr> <td>UA Collection type</td> <td>Clean Catch NA </td> <td /> </tr> <tr> <td>Urobilinogen</td> <td>0.2 mg/dL</td> <td><=1.0</td> </tr> <tr> <th colspan="10"> Screen, Urine - 03/26/18 13:00</th> < /tr> <tr> <td> Screen, Urine</td> <td> Negative NA</td> <td /> </tr> <tr> <th colspan= "10">Obstetric Panel - 03/26/18 13:20</th> </tr> <tr> <td >Absolute Basophils</td> <td>0.02 10*3/uL</td> <td>0.00-0.20</ td> </tr> <tr> <td>Absolute Eosinophils</td> <td >0.12 10*3/uL</td> <td>0.00-0.50</td> </tr> <tr> <td>Absolute Lymphocytes</td> <td>2.24 10*3/uL</td> <td>0.80 -3.30</td> </tr> <tr> <td>Absolute Monocytes</td> <td>0.72 10*3/uL</td> <td>0.30-1.00</td> </tr> <tr> <td>Absolute Neutrophils</td> <td>6.89 10*3/uL</td> < td>1.90-7.00</td> </tr> <tr> <td>Basophils</td> <td>0 %</td> <td>0-2</td> </tr> <tr> <td> Eosinophils</td> <td>1 %</td> <td>0-4</td> </tr> <tr> <td>HCT</td> <td>34.9 %</td> <td>37.0- 47.0</td> </tr> <tr> <td>HGB</td> <td>11.7 g/dL< /td> <td>12.0-16.0</td> </tr> <tr> <td>Immature Granulocytes</td> <td>0.1 %</td> <td>0.0-1.0</td> < /tr> <tr> <td>Lymphocytes</td> <td>22 %</td> <td>20-46</td> </tr> <tr> <td>MCH</td> <td> 30.4 pg</td> <td>27.0-32.0</td> </tr> <tr> <td> MCHC</td> <td>33.5 g/dL</td> <td>32.0-36.0</td> </tr> <tr> <td>MCV</td> <td>90.6 fL</td> <td>82.0- 99.0</td> </tr> <tr> <td>Monocytes</td> <td>7 &# 37;</td> <td>4-11</td> </tr> <tr> <td>MPV</td> <td>10.7 fL</td> <td>8.8-14.8</td> </tr> <tr> <td>Neutrophils</td> <td>69 %</td> <td>51-75</td> </tr> <tr> <td>Nucleated RBC Automated</td> <td >0.0 /100 WBC</td> <td /> </tr> <tr> <td> Platelet Count</td> <td>196 K/uL</td> <td>150-400</td> </tr> <tr> <td>RBC</td> <td>3.85 10*6/uL</td> <td>4.00-5.20</td> </tr> <tr> <td>RDW</td> <td> 12.4 %</td> <td>11.5-14.5</td> </tr> <tr> < td>WBC</td> <td>10.0 K/uL</td> <td>4.8-10.8</td> </tr> <tr> <td>Hepatitis B Surface Antigen</td> <td> Negative </td> <td /> </tr> <tr> <td>RPR</td> <td>Non-reactive NA</td> <td /> </tr> <tr> <td>Rubella IgG</td> <td>Positive NA</td> <td /> </ tr> <tr> <td>Rubella IgG Index</td> <td>1.71 NA</td> <td>=>1.00</td> </tr> <tr> <th colspan="10"> Glucose - 03/26/18 13:20</th> </tr> <tr> <td>Glucose</td > <td>91 mg/dL</td> <td>70-99</td> </tr> <tr> <th colspan="10">HIV Antigen/Antibody Combo - 03/26/18 13:20</th> </tr> <tr> <td>HIV Antigen/Antibody Combo</td> <td> Negative NA</td> <td /> </tr> <tr> <th colspan= "10">Type and Screen - 03/26/18 13:20</th> </tr> <tr> <td >ABO and Rh</td> <td> NA</td> <td /> </tr> <tr> <td>Antibody Screen</td> <td> NA</td> <td /> </tr> <tr> <th colspan="10">Drug Screen + ETOH - 05/28/18 10:50< /th> </tr> <tr> <td>Zoning Technician</td> <td>[place] </td> <td /> </tr> <tr> <td>Donor ID By</td> <td>Photo ID </td> <td /> </tr> <tr> <td>Ethanol, Urine</td> <td><10.00 mg/dL</td> <td> 20.00-80.00</td> </tr> <tr> <td>Location</td> < td>[employer] Employee </td> <td /> </tr> <tr> <td> Reason For Test</td> <td>Pre-Employment </td> <td /> </ tr> <tr> <td>Temperature In Range</td> <td>YES Deg F</ td> <td>90.00-100.00</td> </tr> <tr> <td>Urine Amphetamines</td> <td>NEGATIVE </td> <td /> </tr> <tr> <td>Urine Barbiturates</td> <td>NEGATIVE </td> <td /> </tr> <tr> <td>Urine Benzodiazepines</td> <td>NEGATIVE </td> <td /> </tr> <tr> <td> Urine Cocaine</td> <td>NEGATIVE </td> <td /> </tr> <tr> <td>Urine MDMA</td> <td>NEGATIVE </td> <td / > </tr> <tr> <td>Urine Methadone</td> <td> NEGATIVE </td> <td /> </tr> <tr> <td>Urine Methamphetamines</td> <td>NEGATIVE </td> <td /> </tr> <tr> <td>Urine Opiates</td> <td>NEGATIVE </td> <td /> </tr> <tr> <td>Urine Oxycodone</td> <td >NEGATIVE </td> <td /> </tr> <tr> <td>Urine PCP< /td> <td>NEGATIVE </td> <td /> </tr> <tr> <td>Urine THC Metabolite</td> <td>NEGATIVE </td> <td /> </tr> <tr> <th colspan="10">Varicella-Zoster V Ab, IgG - 05/28/18 10:50</th> </tr> <tr> <td>VARICELLA ZOSTER IGG</ td> <td><135 INDEX</td> <td>IMMUNE >165</td> </tr > </tbody> </table> </text> <entry> <organizer moodCode="EVN" classCode="BATTERY"> <templateId root="[id number]..22.4.1" /> <id nullFlavor="NA" /> <code codeSystem="local" code="XZZ620" displayName="Lab Card" /> <statusCode code="completed" /> <component> <observation moodCode="EVN" classCode="OBS"> <templateId root= "[id number]" /> <id nullFlavor="NA" /> < code codeSystem="local" code="Ukj687" displayName="LabCard" /> < statusCode code="completed" /> <effectiveTime value="[id number]" /> <value unit="" xsi:type="PQ" value="Specimen submitted to [facility]." /> <referenceRange> < observationRange> <text /> </observationRange> </referenceRange> </observation> </component> </organizer> </ entry> <entry> <organizer moodCode="EVN" classCode="BATTERY"> < templateId root="[id number]" /> <id nullFlavor="NA" /> <code codeSystem="local" code="UA" displayName="Urinalysis with reflex microscopic" /> <statusCode code="completed" /> <component> < observation moodCode="EVN" classCode="OBS"> <templateId root= "[id number]..22.4.2" /> <id nullFlavor="NA" /> < code codeSystem="local" code="UAPP" displayName="Appearance" /> < statusCode code="completed" /> <effectiveTime value="[id number]" /> <value unit="NA" xsi:type="PQ" value="Clear" /> < referenceRange> <observationRange> <text /> < /observationRange> </referenceRange> </observation> </ component> <component> <observation moodCode="EVN" classCode="OBS"> <templateId root="216.840.1.437400.10.4.2" /> <id nullFlavor="NA" /> <code codeSystem="local" code="UBIL" displayName= "Bilirubin" /> <statusCode code="completed" /> <effectiveTime value="" /> <value unit="NA" xsi:type="PQ" value="Negative " /> <referenceRange> <observationRange> <text> Negative</text> </observationRange> </referenceRange> </observation> </component> <component> <observation moodCode ="EVN" classCode="OBS"> <templateId root= "[id number].2" /> <id nullFlavor="NA" /> < code codeSystem="local" code="UBLD" displayName="Blood" /> <statusCode code="completed" /> <effectiveTime value="" /> < value unit="NA" xsi:type="PQ" value="Negative" /> <referenceRange> <observationRange> <text>Negative</text> </ observationRange> </referenceRange> </observation> </ component> <component> <observation moodCode="EVN" classCode="OBS"> <templateId root="16.840.1.639023.10.4.2" /> <id nullFlavor="NA" /> <code codeSystem="local" code="UCOLR" displayName= "Color" /> <statusCode code="completed" /> <effectiveTime value="" /> <value unit="NA" xsi:type="PQ" value="Straw" / > <referenceRange> <observationRange> <text /> </observationRange> </referenceRange> </observation > </component> <component> <observation moodCode="EVN" classCode="OBS"> <templateId root="16.840.1.099881.10.4.2" /> <id nullFlavor="NA" /> <code codeSystem="local" code="UGLU" displayName="Glucose, Urine" /> <statusCode code="completed" /> <effectiveTime value="" /> <value unit="" xsi:type="PQ" value="Negative" /> <referenceRange> <observationRange> <text>Negative</text> </observationRange> </ referenceRange> </observation> </component> <component> <observation moodCode="EVN" classCode="OBS"> <templateId root= "840.1.038195.07.04.22.4.2" /> <id nullFlavor="NA" /> < code codeSystem="local" code="UKET" displayName="Ketones" /> < statusCode code="completed" /> <effectiveTime value="" /> <value unit="" xsi:type="PQ" value="Negative" /> < referenceRange> <observationRange> <text>Negative</text > </observationRange> </referenceRange> </observation > </component> <component> <observation moodCode="EVN" classCode="OBS"> <templateId root="10.31.840.1.250634.07.04.22.4.2" /> <id nullFlavor="NA" /> <code codeSystem="local" code="ULEU" displayName="Leukocyte Esterase" /> <statusCode code="completed" /> <effectiveTime value="" /> <value unit="NA" xsi:type ="PQ" value="Negative" /> <referenceRange> <observationRange > <text>Negative</text> </observationRange> </ referenceRange> </observation> </component> <component> <observation moodCode="EVN" classCode="OBS"> <templateId root= "10.31.840.1.731129.1022.4.2" /> <id nullFlavor="NA" /> < code codeSystem="local" code="UNIT" displayName="Nitrites" /> < statusCode code="completed" /> <effectiveTime value="" /> <value unit="NA" xsi:type="PQ" value="Negative" /> < referenceRange> <observationRange> <text>Negative</text > </observationRange> </referenceRange> </observation > </component> <component> <observation moodCode="EVN" classCode="OBS"> <templateId root="840.1.678994.07.04.22.4.2" /> <id nullFlavor="NA" /> <code codeSystem="local" code="UPH" displayName="pH" /> <statusCode code="completed" /> < effectiveTime value="" /> <value unit="NA" xsi:type="PQ" value="6.0" /> <referenceRange> <observationRange> <text>5.0-8.0</text> </observationRange> </ referenceRange> </observation> </component> <component> <observation moodCode="EVN" classCode="OBS"> <templateId root= "840.1.116190.10.4.2" /> <id nullFlavor="NA" /> < code codeSystem="local" code="UPRO" displayName="Protein" /> < statusCode code="completed" /> <effectiveTime value="" /> <value unit="NA" xsi:type="PQ" value="Negative" /> < referenceRange> <observationRange> <text>Negative</text > </observationRange> </referenceRange> </observation > </component> <component> <observation moodCode="EVN" classCode="OBS"> <templateId root="16.840.1.657076.07.04.22.4.2" /> <id nullFlavor="NA" /> <code codeSystem="local" code="USPG" displayName="Specific [place]" /> <statusCode code="completed" /> <effectiveTime value="[id number]" /> <value unit="NA" xsi:type= "PQ" value="1.010" /> <referenceRange> <observationRange> <text>1.003-1.030</text> </observationRange> </ referenceRange> </observation> </component> <component> <observation moodCode="EVN" classCode="OBS"> <templateId root= "10.31.840.1.673483.07.04.22.4.2" /> <id nullFlavor="NA" /> < code codeSystem="local" code="UTYP" displayName="UA Collection type" /> <statusCode code="completed" /> <effectiveTime value="[id number]" / > <value unit="NA" xsi:type="PQ" value="Clean Catch" /> < referenceRange> <observationRange> <text /> < /observationRange> </referenceRange> </observation> </ component> <component> <observation moodCode="EVN" classCode="OBS"> <templateId root="10.31.840.1.045499.07.04.22.4.2" /> <id nullFlavor="NA" /> <code codeSystem="local" code="UURO" displayName= "Urobilinogen" /> <statusCode code="completed" /> < effectiveTime value="[id number]" /> <value unit="mg/dL" xsi:type="PQ " value="Negative" /> <referenceRange> <observationRange> <text><1.0</text> </observationRange> </ referenceRange> </observation> </component> </organizer> </entry > <entry> <organizer moodCode="EVN" classCode="BATTERY"> <templateId root="216.840.1.999769.10..22.4.1" /> <id nullFlavor="NA" /> <code codeSystem="local" code="PREGN" displayName=" Screen, Urine NPT" /> <statusCode code="completed" /> <component> <observation moodCode ="EVN" classCode="OBS"> <templateId root= "216.840.1.249135.10..22.4.2" /> <id nullFlavor="NA" /> < code codeSystem="local" code="PREGN" displayName=" Screen, Urine NPT" / > <statusCode code="completed" /> <effectiveTime value= "[id number]" /> <value unit="NA" xsi:type="PQ" value="Negative" /> <referenceRange> <observationRange> <text /> </observationRange> </referenceRange> </observation> </component> </organizer> </entry> <entry> <organizer moodCode="EVN " classCode="BATTERY"> <templateId root="216.840.1.377998.10..22.4.1" / > <id nullFlavor="NA" /> <code codeSystem="local" code="WET" displayName="WET MOUNT" /> <statusCode code="completed" /> <component > <observation moodCode="EVN" classCode="OBS"> <templateId root= "2.16.840.1.526816.10..22.4.2" /> <id nullFlavor="NA" /> < code codeSystem="local" code="MB" displayName="Microbiology" /> < statusCode code="completed" /> <effectiveTime value="" /> <value xsi:type="ST" value="<pre><b>WET MOUNT</b> See BelowWET MOUNT(F ) Mauro Date/Time: 12/21/2017 17:00 Alan Date/Time: 12/21/2017 17:18SOURCE: CERVIXSPEC DESC: CLUE CELLSNO CLUE CELLS SEENTRICHOMONASNO TRICHOMONAS SEENWBCMODERATE WBCYEASTNO YEAST [facility]EN[facility] [place] [address]</pre>" /> < referenceRange> <observationRange> <text /> < /observationRange> </referenceRange> </observation> </ component> </organizer> </entry> <entry> <organizer moodCode="EVN" classCode="BATTERY"> <templateId root="216.840.1.382044.10...4.1" /> <id nullFlavor="NA" /> <code codeSystem="local" code="GRAM" displayName="GRAM STAIN - CHLAMYDIA DNA BY PCR" /> <statusCode code= "completed" /> <component> <observation moodCode="EVN" classCode= "OBS"> <templateId root="2.16.840.1.909130.10..22.4.2" /> < id nullFlavor="NA" /> <code codeSystem="local" code="MB" displayName= "Microbiology" /> <statusCode code="completed" /> < effectiveTime value="[id number]" /> <value xsi:type="ST" value="<pre> <b>GRAM STAIN - CHLAMYDIA DNA BY PCR - GONORRHOEA DNA BY PCR</b> See BelowGRAM STAIN(F) Mauro Date/Time: 12/21/2017 17:00 Alan Date/Time: 12/22/2017 12:49SOURCE: CERVIXSPEC DESC: GRAM STAINMANY NEUTROPHILSMANY GRAM POSITIVE BACILLI RESEMBLING LACTOBACILLUSMODERATE GRAM POSITIVE COCCI RESEMBLING STREPTOCOCCUSNO ORGANISMS SEEN RESEMBLING NEISSERIA GONORRHOEAE[address] [id number] BelowCHLAMYDIA DNA BY PCR(F) Mauro Date/Time: 12/21/2017 17: 00 Alan Date/Time: 12/22/2017 12:49SOURCE: CERVIXSPEC DESC: [address] [id number] BelowGONORRHOEA DNA BY PCR(F) Mauro Date/Time: 12/21/2017 17:00 Alan Date/Time: 12/22/2017 12:49SOURCE: CERVIXSPEC DESC: [address] [address]</ pre>" /> <referenceRange> <observationRange> < text /> </observationRange> </referenceRange> </ observation> </component> </organizer> </entry> <entry> <organizer moodCode="EVN" classCode="BATTERY"> <templateId root= "2.16.840.1.239602.10.20.22.4.1" /> <id nullFlavor="NA" /> <code codeSystem="local" code="UA" displayName="URINALYSIS, ROUTINE" /> < statusCode code="completed" /> <component> <observation moodCode= "EVN" classCode="OBS"> <templateId root="2.16.840.1.573516.10..22.4.2 " /> <id nullFlavor="NA" /> <code codeSystem="local" code= "LEUESU" displayName="UA LEUKOCYTE ESTERASE DIPSTICK" /> <statusCode code="completed" /> <effectiveTime value="[id number]" /> < value unit="" xsi:type="PQ" value="TRACE" /> <interpretationCode codeSystem="local" code="*" /> <referenceRange> < observationRange> <text>NEGATIVE</text> </ observationRange> </referenceRange> </observation> </ component> <component> <observation moodCode="EVN" classCode="OBS"> <templateId root="10.31.840.1.107748.07.04.22.4.2" /> <id nullFlavor="NA" /> <code codeSystem="local" code="NITRIU" displayName= "UA NITRITE DIPSTICK" /> <statusCode code="completed" /> < effectiveTime value="[id number]" /> <value unit="" xsi:type="PQ" value="NEGATIVE" /> <referenceRange> <observationRange> <text>NEGATIVE</text> </observationRange> </ referenceRange> </observation> </component> <component> <observation moodCode="EVN" classCode="OBS"> <templateId root= "840.1.355929.07.04.22.4.2" /> <id nullFlavor="NA" /> < code codeSystem="local" code="PROTEIU" displayName="UA PROTEIN DIPSTICK" /> <statusCode code="completed" /> <effectiveTime value= "352257169254" /> <value unit="" xsi:type="PQ" value="NEGATIVE" /> <referenceRange> <observationRange> <text>NEGATIVE </text> </observationRange> </referenceRange> </ observation> </component> <component> <observation moodCode= "EVN" classCode="OBS"> <templateId root="10.31.840.1.969282.07.04.22.4.2 " /> <id nullFlavor="NA" /> <code codeSystem="local" code= "DGLUU" displayName="UA GLUCOSE DIPSTICK" /> <statusCode code= "completed" /> <effectiveTime value="" /> <value unit="" xsi:type="PQ" value="NEGATIVE" /> <referenceRange> < observationRange> <text>NEGATIVE</text> </ observationRange> </referenceRange> </observation> </ component> <component> <observation moodCode="EVN" classCode="OBS"> <templateId root="10.31.840.1.937442.10.4.2" /> <id nullFlavor="NA" /> <code codeSystem="local" code="KETONU" displayName= "UA KETONE DIPSTICK" /> <statusCode code="completed" /> < effectiveTime value="" /> <value unit="" xsi:type="PQ" value="NEGATIVE" /> <referenceRange> <observationRange> <text>NEGATIVE</text> </observationRange> </ referenceRange> </observation> </component> <component> <observation moodCode="EVN" classCode="OBS"> <templateId root= "10.31.840.1.021403.07.04.22.4.2" /> <id nullFlavor="NA" /> < code codeSystem="local" code="UROBILU" displayName="UA UROBILINOGEN DIPSTICK" / > <statusCode code="completed" /> <effectiveTime value= "" /> <value unit="" xsi:type="PQ" value="NORMAL" /> <referenceRange> <observationRange> <text>NORMAL</ text> </observationRange> </referenceRange> </ observation> </component> <component> <observation moodCode= "EVN" classCode="OBS"> <templateId root="10.31.840.1.117579.07.04.22.4.2 " /> <id nullFlavor="NA" /> <code codeSystem="local" code= "BILU" displayName="UA BILIRUBIN DIPSTICK" /> <statusCode code= "completed" /> <effectiveTime value="" /> <value unit="" xsi:type="PQ" value="NEGATIVE" /> <referenceRange> < observationRange> <text>NEGATIVE</text> </ observationRange> </referenceRange> </observation> </ component> <component> <observation moodCode="EVN" classCode="OBS"> <templateId root="2.16.840.1.850221.10..22.4.2" /> <id nullFlavor="NA" /> <code codeSystem="local" code="KARLIE" displayName="UA BLOOD DIPSTICK" /> <statusCode code="completed" /> < effectiveTime value="" /> <value unit="" xsi:type="PQ" value="NEGATIVE" /> <referenceRange> <observationRange> <text>NEGATIVE</text> </observationRange> </ referenceRange> </observation> </component> <component> <observation moodCode="EVN" classCode="OBS"> <templateId root= "2.16.840.1.067386.10..22.4.2" /> <id nullFlavor="NA" /> < code codeSystem="local" code="SPGRU" displayName="UA SPECIFIC GRAVITY" /> <statusCode code="completed" /> <effectiveTime value=" " /> <value unit="" xsi:type="PQ" value="1.006" /> < interpretationCode codeSystem="local" code="*" /> <referenceRange> <observationRange> <text>1.015-1.025</text> </ observationRange> </referenceRange> </observation> </ component> <component> <observation moodCode="EVN" classCode="OBS"> <templateId root="2.16.840.1.021715.10..22.4.2" /> <id nullFlavor="NA" /> <code codeSystem="local" code="REJI" displayName="UR PH" /> <statusCode code="completed" /> <effectiveTime value= "583757076267" /> <value unit="" xsi:type="PQ" value="8.0" /> <interpretationCode codeSystem="local" code="*" /> <referenceRange> <observationRange> <text>5.0-7.0</text> </ observationRange> </referenceRange> </observation> </ component> </organizer> </entry> <entry> <organizer moodCode="EVN" classCode="BATTERY"> <templateId root="2.16.840.1.903560.10..22.4.1" /> <id nullFlavor="NA" /> <code codeSystem="local" code="UAMICRO" displayName="UA MICROSCOPIC" /> <statusCode code="completed" /> < component> <observation moodCode="EVN" classCode="OBS"> < templateId root="2.16.840.1.364724.10..22.4.2" /> <id nullFlavor="NA " /> <code codeSystem="local" code="BACU" displayName="UA BACTERIA" /> <statusCode code="completed" /> <effectiveTime value= "090521102343" /> <value unit="" xsi:type="PQ" value="1+" /> < interpretationCode codeSystem="local" code="*" /> <referenceRange> <observationRange> <text>NEGATIVE</text> </ observationRange> </referenceRange> </observation> </ component> <component> <observation moodCode="EVN" classCode="OBS"> <templateId root="216.840.1.898720.10..22.4.2" /> <id nullFlavor="NA" /> <code codeSystem="local" code="EPIU" displayName=" UA EPITHELIAL CELLS" /> <statusCode code="completed" /> < effectiveTime value="" /> <value unit="epi/hpf" xsi:type= "PQ" value="2+" /> <interpretationCode codeSystem="local" code="*" /> <referenceRange> <observationRange> <text>0 - 1 +</text> </observationRange> </referenceRange> </ observation> </component> <component> <observation moodCode= "EVN" classCode="OBS"> <templateId root="16.840.1.558024.07.04.22.4.2 " /> <id nullFlavor="NA" /> <code codeSystem="local" code= "RBCU" displayName="UA RBC" /> <statusCode code="completed" /> <effectiveTime value="" /> <value unit="rbc/hpf" xsi:type ="PQ" value="0-3" /> <referenceRange> <observationRange> <text>0 - 3</text> </observationRange> </ referenceRange> </observation> </component> <component> <observation moodCode="EVN" classCode="OBS"> <templateId root= "16.840.1.413051.10..22.4.2" /> <id nullFlavor="NA" /> < code codeSystem="local" code="UAVOL" displayName="UA VOLUME FOR EXAM" /> <statusCode code="completed" /> <effectiveTime value="" /> <value unit="mL" xsi:type="PQ" value="12.0" /> < referenceRange> <observationRange> <text>(12mL STD)</ text> </observationRange> </referenceRange> </ observation> </component> <component> <observation moodCode= "EVN" classCode="OBS"> <templateId root="216.840.1.041833.10.20.22.4.2 " /> <id nullFlavor="NA" /> <code codeSystem="local" code= "WBCU" displayName="UA WBC" /> <statusCode code="completed" /> <effectiveTime value="288286806508" /> <value unit="wbc/hpf" xsi:type ="PQ" value="2-5" /> <referenceRange> <observationRange> <text>0 - 5</text> </observationRange> </ referenceRange> </observation> </component> </organizer> </entry > <entry> <organizer moodCode="EVN" classCode="BATTERY"> <templateId root="216.840.1.980277.10..22.4.1" /> <id nullFlavor="NA" /> <code codeSystem="local" code="PREGU" displayName="UR TEST" /> < statusCode code="completed" /> <component> <observation moodCode= "EVN" classCode="OBS"> <templateId root="16.840.1.871952.10.20.22.4.2 " /> <id nullFlavor="NA" /> <code codeSystem="local" code= "PREGU" displayName="UR TEST" /> <statusCode code="completed " /> <effectiveTime value="360964615746" /> <value unit="" xsi :type="PQ" value="NEGATIVE" /> <referenceRange> < observationRange> <text>NEGATIVE</text> </ observationRange> </referenceRange> </observation> </ component> </organizer> </entry> <entry> <organizer moodCode="EVN" classCode="BATTERY"> <templateId root="2.16.840.1.477382.10.20.22.4.1" /> <id nullFlavor="NA" /> <code codeSystem="local" code="DRUGAB" displayName="UR DRUGS OF ABUSE SCREEN" /> <statusCode code="completed" /> <component> <observation moodCode="EVN" classCode="OBS"> < templateId root="2.16.840.1.409554.10..22.4.2" /> <id nullFlavor="NA " /> <code codeSystem="local" code="AMPHU" displayName="UR AMPHETAMINES SCREEN" /> <statusCode code="completed" /> < effectiveTime value="853899769012" /> <value unit="" xsi:type="PQ" value="NEG (<1000 ng/mL)" /> <referenceRange> < observationRange> <text>NEGATIVE</text> </ observationRange> </referenceRange> </observation> </ component> <component> <observation moodCode="EVN" classCode="OBS"> <templateId root="2.16.840.1.964418.10..22.4.2" /> <id nullFlavor="NA" /> <code codeSystem="local" code="BARBU" displayName= "UR BARBITURATE SCREEN" /> <statusCode code="completed" /> < effectiveTime value="700311949757" /> <value unit="" xsi:type="PQ" value="NEG (< 200 ng/mL)" /> <referenceRange> < observationRange> <text>NEGATIVE</text> </ observationRange> </referenceRange> </observation> </ component> <component> <observation moodCode="EVN" classCode="OBS"> <templateId root="216.840.1.083830.10..22.4.2" /> <id nullFlavor="NA" /> <code codeSystem="local" code="DAUCOMMENT" displayName="DRUGS OF ABUSE SCREEN COMMENT" /> <statusCode code= "completed" /> <effectiveTime value="786634473106" /> <value unit="" xsi:type="PQ" value="" /> <referenceRange> < observationRange> <text /> </observationRange> </referenceRange> </observation> </component> <component> <observation moodCode="EVN" classCode="OBS"> <templateId root= "216.840.1.388164.10..22.4.2" /> <id nullFlavor="NA" /> < code codeSystem="local" code="OPIU" displayName="UR OPIATES SCREEN" /> <statusCode code="completed" /> <effectiveTime value="573219006740" /> <value unit="" xsi:type="PQ" value="NEG (< 300 ng/mL)" /> <referenceRange> <observationRange> <text>NEGATIVE</ text> </observationRange> </referenceRange> </ observation> </component> <component> <observation moodCode= "EVN" classCode="OBS"> <templateId root="216.840.1.892865.10..22.4.2 " /> <id nullFlavor="NA" /> <code codeSystem="local" code= "PCPU" displayName="UR PHENCYCLIDINE (PCP) SCREEN" /> <statusCode code= "completed" /> <effectiveTime value="693282065585" /> <value unit="" xsi:type="PQ" value="NEG (< 25 ng/mL)" /> <referenceRange > <observationRange> <text>NEGATIVE</text> </ observationRange> </referenceRange> </observation> </ component> <component> <observation moodCode="EVN" classCode="OBS"> <templateId root="2.16.840.1.544668.10..4.2" /> <id nullFlavor="NA" /> <code codeSystem="local" code="THCU" displayName=" UR CANNABINOIDS (THC) SCREEN" /> <statusCode code="completed" /> <effectiveTime value="331767234748" /> <value unit="" xsi:type="PQ " value="NEG (< 50 ng/mL)" /> <referenceRange> < observationRange> <text>NEGATIVE</text> </ observationRange> </referenceRange> </observation> </ component> <component> <observation moodCode="EVN" classCode="OBS"> <templateId root="216.840.1.624042.07.04.224.2" /> <id nullFlavor="NA" /> <code codeSystem="local" code="COCAU" displayName= "UR COCAINE METABOLITE SCREEN" /> <statusCode code="completed" /> <effectiveTime value="064368299223" /> <value unit="" xsi:type="PQ " value="NEG (< 300 ng/mL)" /> <referenceRange> < observationRange> <text>NEGATIVE</text> </ observationRange> </referenceRange> </observation> </ component> <component> <observation moodCode="EVN" classCode="OBS"> <templateId root="216.840.1.789773.10..4.2" /> <id nullFlavor="NA" /> <code codeSystem="local" code="METHU" displayName= "UR METHADONE SCREEN" /> <statusCode code="completed" /> < effectiveTime value="057391897076" /> <value unit="" xsi:type="PQ" value="NEG (< 300 ng/mL)" /> <referenceRange> < observationRange> <text>NEGATIVE</text> </ observationRange> </referenceRange> </observation> </ component> <component> <observation moodCode="EVN" classCode="OBS"> <templateId root="216.840.1.842163.10.4.2" /> <id nullFlavor="NA" /> <code codeSystem="local" code="BENZU" displayName= "UR BENZODIAZEPINE SCREEN" /> <statusCode code="completed" /> <effectiveTime value="378566198013" /> <value unit="" xsi:type="PQ" value="NEG (< 200 ng/mL)" /> <referenceRange> < observationRange> <text>NEGATIVE</text> </ observationRange> </referenceRange> </observation> </ component> </organizer> </entry> <entry> <organizer moodCode="EVN" classCode="BATTERY"> <templateId root="16.840.1.255578.07.04.22.4.1" /> <id nullFlavor="NA" /> <code codeSystem="local" code="HIV" displayName ="HIV" /> <statusCode code="completed" /> <component> < observation moodCode="EVN" classCode="OBS"> <templateId root= "16.840.1.652727.10..4.2" /> <id nullFlavor="NA" /> < code codeSystem="local" code="[id number]" displayName="AB HIV 1 2" /> < statusCode code="completed" /> <effectiveTime value="896759965114" /> <value unit="" xsi:type="PQ" value="NEGATIVE" /> < referenceRange> <observationRange> <text>NEGATIVE</text > </observationRange> </referenceRange> </observation > </component> <component> <observation moodCode="EVN" classCode="OBS"> <templateId root="216.840.1.447852.10..22.4.2" /> <id nullFlavor="NA" /> <code codeSystem="local" code= "[id number]" displayName="HIV 1 P24 AG" /> <statusCode code="completed" /> <effectiveTime value="297400947269" /> <value unit="" xsi: type="PQ" value="NEGATIVE" /> <referenceRange> < observationRange> <text>NEGATIVE</text> </ observationRange> </referenceRange> </observation> </ component> </organizer> </entry> <entry> <organizer moodCode="EVN" classCode="BATTERY"> <templateId root="216.840.1.894967.10..22.4.1" /> <id nullFlavor="NA" /> <code codeSystem="local" code="RPR" displayName ="RAPID PLASMA REAGIN" /> <statusCode code="completed" /> <component> <observation moodCode="EVN" classCode="OBS"> <templateId root= "216.840.1.660961.10..22.4.2" /> <id nullFlavor="NA" /> < code codeSystem="local" code="RPR" displayName="RAPID PLASMA REAGIN" /> <statusCode code="completed" /> <effectiveTime value="845498696054" / > <value unit="" xsi:type="PQ" value="NONREACTIVE" /> < referenceRange> <observationRange> <text>NONREACTIVE</ text> </observationRange> </referenceRange> </ observation> </component> </organizer> </entry> <entry> <organizer moodCode="EVN" classCode="BATTERY"> <templateId root= "16.840.1.163326.10..4.1" /> <id nullFlavor="NA" /> <code codeSystem="local" code="UADIP" displayName="Urinalysis, Dipstick Only" /> <statusCode code="completed" /> <component> <observation moodCode= "EVN" classCode="OBS"> <templateId root="10.31.840.1.345770.07.04.22.4.2 " /> <id nullFlavor="NA" /> <code codeSystem="local" code= "UAPP" displayName="Appearance" /> <statusCode code="completed" /> <effectiveTime value="153385516382" /> <value unit="NA" xsi:type= "PQ" value="Clear" /> <referenceRange> <observationRange> <text /> </observationRange> </referenceRange> </observation> </component> <component> <observation moodCode="EVN" classCode="OBS"> <templateId root= "10.31.840.1.288713.07.04.22.4.2" /> <id nullFlavor="NA" /> < code codeSystem="local" code="UBIL" displayName="Bilirubin" /> < statusCode code="completed" /> <effectiveTime value="344024000473" /> <value unit="NA" xsi:type="PQ" value="Negative" /> < referenceRange> <observationRange> <text>Negative</text > </observationRange> </referenceRange> </observation > </component> <component> <observation moodCode="EVN" classCode="OBS"> <templateId root="10.31.840.1.443916.07.04.22.4.2" /> <id nullFlavor="NA" /> <code codeSystem="local" code="UBLD" displayName="Blood" /> <statusCode code="completed" /> < effectiveTime value="623914287151" /> <value unit="NA" xsi:type="PQ" value="Trace" /> <interpretationCode codeSystem="local" code="*" /> <referenceRange> <observationRange> <text> Negative</text> </observationRange> </referenceRange> </observation> </component> <component> <observation moodCode ="EVN" classCode="OBS"> <templateId root= "10.31.840.1.354892.10..22.4.2" /> <id nullFlavor="NA" /> < code codeSystem="local" code="UCOLR" displayName="Color" /> < statusCode code="completed" /> <effectiveTime value="341336752980" /> <value unit="NA" xsi:type="PQ" value="Yellow" /> < referenceRange> <observationRange> <text /> < /observationRange> </referenceRange> </observation> </ component> <component> <observation moodCode="EVN" classCode="OBS"> <templateId root="10.31.840.1.528615.10..22.4.2" /> <id nullFlavor="NA" /> <code codeSystem="local" code="UGLU" displayName= "Glucose, Urine" /> <statusCode code="completed" /> < effectiveTime value="697558460270" /> <value unit="NA" xsi:type="PQ" value="Negative" /> <referenceRange> <observationRange> <text>Negative</text> </observationRange> </ referenceRange> </observation> </component> <component> <observation moodCode="EVN" classCode="OBS"> <templateId root= "10.31.840.1.908631.10..22.4.2" /> <id nullFlavor="NA" /> < code codeSystem="local" code="UKET" displayName="Ketones" /> < statusCode code="completed" /> <effectiveTime value="" /> <value unit="NA" xsi:type="PQ" value="Negative" /> < referenceRange> <observationRange> <text>Negative</text > </observationRange> </referenceRange> </observation > </component> <component> <observation moodCode="EVN" classCode="OBS"> <templateId root="216.840.1.431166.07.04.22.4.2" /> <id nullFlavor="NA" /> <code codeSystem="local" code="ULEU" displayName="Leukocyte Esterase" /> <statusCode code="completed" /> <effectiveTime value="" /> <value unit="NA" xsi:type ="PQ" value="Pos 2+" /> <interpretationCode codeSystem="local" code="* " /> <referenceRange> <observationRange> <text> Negative</text> </observationRange> </referenceRange> </observation> </component> <component> <observation moodCode ="EVN" classCode="OBS"> <templateId root= "10.31.840.1.654151.07.04.22.4.2" /> <id nullFlavor="NA" /> < code codeSystem="local" code="UNIT" displayName="Nitrites" /> < statusCode code="completed" /> <effectiveTime value="419883280794" /> <value unit="NA" xsi:type="PQ" value="Negative" /> < referenceRange> <observationRange> <text>Negative</text > </observationRange> </referenceRange> </observation > </component> <component> <observation moodCode="EVN" classCode="OBS"> <templateId root="16.840.1.421005.10..4.2" /> <id nullFlavor="NA" /> <code codeSystem="local" code="UPH" displayName="pH" /> <statusCode code="completed" /> < effectiveTime value="158624689166" /> <value unit="NA" xsi:type="PQ" value="6.0" /> <referenceRange> <observationRange> <text>5.0-8.0</text> </observationRange> </ referenceRange> </observation> </component> <component> <observation moodCode="EVN" classCode="OBS"> <templateId root= "16.840.1.792469.07.04.22.4.2" /> <id nullFlavor="NA" /> < code codeSystem="local" code="UPRO" displayName="Protein" /> < statusCode code="completed" /> <effectiveTime value="777508075001" /> <value unit="NA" xsi:type="PQ" value="Negative" /> < referenceRange> <observationRange> <text>Negative</text > </observationRange> </referenceRange> </observation > </component> <component> <observation moodCode="EVN" classCode="OBS"> <templateId root="16.840.1.811300.10..4.2" /> <id nullFlavor="NA" /> <code codeSystem="local" code="USPG" displayName="Specific [place]" /> <statusCode code="completed" /> <effectiveTime value="306843653003" /> <value unit="NA" xsi:type= "PQ" value="1.020" /> <referenceRange> <observationRange> <text>1.003-1.030</text> </observationRange> </ referenceRange> </observation> </component> <component> <observation moodCode="EVN" classCode="OBS"> <templateId root= "216.840.1.438917.10..22.4.2" /> <id nullFlavor="NA" /> < code codeSystem="local" code="UTYP" displayName="UA Collection type" /> <statusCode code="completed" /> <effectiveTime value="081724247153" / > <value unit="NA" xsi:type="PQ" value="Clean Catch" /> < referenceRange> <observationRange> <text /> < /observationRange> </referenceRange> </observation> </ component> <component> <observation moodCode="EVN" classCode="OBS"> <templateId root="16.840.1.021361.10.4.2" /> <id nullFlavor="NA" /> <code codeSystem="local" code="UURO" displayName= "Urobilinogen" /> <statusCode code="completed" /> < effectiveTime value="109660437442" /> <value unit="mg/dL" xsi:type="PQ " value="0.2" /> <referenceRange> <observationRange> <text><=1.0</text> </observationRange> </ referenceRange> </observation> </component> </organizer> </entry > <entry> <organizer moodCode="EVN" classCode="BATTERY"> <templateId root="216.840.1.011464.10..4.1" /> <id nullFlavor="NA" /> <code codeSystem="local" code="UPREG" displayName=" Screen, Urine" /> < statusCode code="completed" /> <component> <observation moodCode= "EVN" classCode="OBS"> <templateId root="16.840.1.215170.10...4.2 " /> <id nullFlavor="NA" /> <code codeSystem="local" code= "UPREG" displayName=" Screen, Urine" /> <statusCode code= "completed" /> <effectiveTime value="336495668688" /> <value unit="NA" xsi:type="PQ" value="Negative" /> <referenceRange> <observationRange> <text /> </observationRange> </referenceRange> </observation> </component> </organizer> < /entry> <entry> <organizer moodCode="EVN" classCode="BATTERY"> < templateId root="16.840.1.804578.10..22.4.1" /> <id nullFlavor="NA" /> <code codeSystem="local" code="OBPAN" displayName="Obstetric Panel" /> <statusCode code="completed" /> <component> <observation moodCode ="EVN" classCode="OBS"> <templateId root= "216.840.1.553350.10..22.4.2" /> <id nullFlavor="NA" /> < code codeSystem="local" code="ABASR" displayName="Absolute Basophils" /> <statusCode code="completed" /> <effectiveTime value="995295260940" /> <value unit="10*3/uL" xsi:type="PQ" value="0.02" /> < referenceRange> <observationRange> <text>0.00-0.20</text > </observationRange> </referenceRange> </observation > </component> <component> <observation moodCode="EVN" classCode="OBS"> <templateId root="16.840.1.150921.07.04.22.4.2" /> <id nullFlavor="NA" /> <code codeSystem="local" code="AEOSR" displayName="Absolute Eosinophils" /> <statusCode code="completed" /> <effectiveTime value="" /> <value unit="10*3/uL" xsi:type="PQ" value="0.12" /> <referenceRange> < observationRange> <text>0.00-0.50</text> </ observationRange> </referenceRange> </observation> </ component> <component> <observation moodCode="EVN" classCode="OBS"> <templateId root="2.16.840.1.913114.07.04.22.4.2" /> <id nullFlavor="NA" /> <code codeSystem="local" code="ALYMR" displayName= "Absolute Lymphocytes" /> <statusCode code="completed" /> < effectiveTime value="" /> <value unit="10*3/uL" xsi:type= "PQ" value="2.24" /> <referenceRange> <observationRange> <text>0.80-3.30</text> </observationRange> </ referenceRange> </observation> </component> <component> <observation moodCode="EVN" classCode="OBS"> <templateId root= "216.840.1.691681...4.2" /> <id nullFlavor="NA" /> < code codeSystem="local" code="AMONR" displayName="Absolute Monocytes" /> <statusCode code="completed" /> <effectiveTime value="" /> <value unit="10*3/uL" xsi:type="PQ" value="0.72" /> < referenceRange> <observationRange> <text>0.30-1.00</text > </observationRange> </referenceRange> </observation > </component> <component> <observation moodCode="EVN" classCode="OBS"> <templateId root="216.840.1.997540.1022.4.2" /> <id nullFlavor="NA" /> <code codeSystem="local" code="ASEGR" displayName="Absolute Neutrophils" /> <statusCode code="completed" /> <effectiveTime value="" /> <value unit="10*3/uL" xsi:type="PQ" value="6.89" /> <referenceRange> < observationRange> <text>1.90-7.00</text> </ observationRange> </referenceRange> </observation> </ component> <component> <observation moodCode="EVN" classCode="OBS"> <templateId root="10.31.840.1.170135.07.04.22.4.2" /> <id nullFlavor="NA" /> <code codeSystem="local" code="BASOR" displayName= "Basophils" /> <statusCode code="completed" /> <effectiveTime value="" /> <value unit="%" xsi:type="PQ" value="0" /> <referenceRange> <observationRange> <text>0-2< /text> </observationRange> </referenceRange> </ observation> </component> <component> <observation moodCode= "EVN" classCode="OBS"> <templateId root="216.840.1.803642.10.22.4.2 " /> <id nullFlavor="NA" /> <code codeSystem="local" code= "EOSR" displayName="Eosinophils" /> <statusCode code="completed" /> <effectiveTime value="" /> <value unit="%" xsi: type="PQ" value="1" /> <referenceRange> <observationRange> <text>0-4</text> </observationRange> </ referenceRange> </observation> </component> <component> <observation moodCode="EVN" classCode="OBS"> <templateId root= "216.840.1.740786.10.20.22.4.2" /> <id nullFlavor="NA" /> < code codeSystem="local" code="HCT" displayName="HCT" /> <statusCode code="completed" /> <effectiveTime value="695590988129" /> < value unit="%" xsi:type="PQ" value="34.9" /> <interpretationCode codeSystem="local" code="*" /> <referenceRange> < observationRange> <text>37.0-47.0</text> </ observationRange> </referenceRange> </observation> </ component> <component> <observation moodCode="EVN" classCode="OBS"> <templateId root="16.840.1.087976.10...4.2" /> <id nullFlavor="NA" /> <code codeSystem="local" code="HGB" displayName="HGB " /> <statusCode code="completed" /> <effectiveTime value= "068136134237" /> <value unit="g/dL" xsi:type="PQ" value="11.7" /> <interpretationCode codeSystem="local" code="*" /> < referenceRange> <observationRange> <text>12.0-16.0</text > </observationRange> </referenceRange> </observation > </component> <component> <observation moodCode="EVN" classCode="OBS"> <templateId root="216.840.1.719012.10.20.22.4.2" /> <id nullFlavor="NA" /> <code codeSystem="local" code="IMGA" displayName="Immature Granulocytes" /> <statusCode code="completed" /> <effectiveTime value="956873658227" /> <value unit="%" xsi:type="PQ" value="0.1" /> <referenceRange> < observationRange> <text>0.0-1.0</text> </ observationRange> </referenceRange> </observation> </ component> <component> <observation moodCode="EVN" classCode="OBS"> <templateId root="2.16.840.1.563398.10.4.2" /> <id nullFlavor="NA" /> <code codeSystem="local" code="LYMPR" displayName= "Lymphocytes" /> <statusCode code="completed" /> < effectiveTime value="" /> <value unit="%" xsi:type="PQ " value="22" /> <referenceRange> <observationRange> <text>20-46</text> </observationRange> </ referenceRange> </observation> </component> <component> <observation moodCode="EVN" classCode="OBS"> <templateId root= "2.16.840.1.104374.10.4.2" /> <id nullFlavor="NA" /> < code codeSystem="local" code="MCH" displayName="MCH" /> <statusCode code="completed" /> <effectiveTime value="" /> < value unit="pg" xsi:type="PQ" value="30.4" /> <referenceRange> <observationRange> <text>27.0-32.0</text> </ observationRange> </referenceRange> </observation> </ component> <component> <observation moodCode="EVN" classCode="OBS"> <templateId root="10.31.840.1.014431.10.20.22.4.2" /> <id nullFlavor="NA" /> <code codeSystem="local" code="MCHC" displayName= "MCHC" /> <statusCode code="completed" /> <effectiveTime value ="" /> <value unit="g/dL" xsi:type="PQ" value="33.5" /> <referenceRange> <observationRange> <text>32.0- 36.0</text> </observationRange> </referenceRange> </ observation> </component> <component> <observation moodCode= "EVN" classCode="OBS"> <templateId root="10.31.840.1.098836.10.22.4.2 " /> <id nullFlavor="NA" /> <code codeSystem="local" code="MCV " displayName="MCV" /> <statusCode code="completed" /> < effectiveTime value="" /> <value unit="fL" xsi:type="PQ" value="90.6" /> <referenceRange> <observationRange> <text>82.0-99.0</text> </observationRange> </ referenceRange> </observation> </component> <component> <observation moodCode="EVN" classCode="OBS"> <templateId root= "10.31.840.1.344726.10.20.22.4.2" /> <id nullFlavor="NA" /> < code codeSystem="local" code="MONOR" displayName="Monocytes" /> < statusCode code="completed" /> <effectiveTime value="565149945185" /> <value unit="%" xsi:type="PQ" value="7" /> <referenceRange > <observationRange> <text>4-11</text> </ observationRange> </referenceRange> </observation> </ component> <component> <observation moodCode="EVN" classCode="OBS"> <templateId root="2.16.840.1.223467.10.4.2" /> <id nullFlavor="NA" /> <code codeSystem="local" code="MPV" displayName="MPV " /> <statusCode code="completed" /> <effectiveTime value= "" /> <value unit="fL" xsi:type="PQ" value="10.7" /> <referenceRange> <observationRange> <text>8.8-14.8</ text> </observationRange> </referenceRange> </ observation> </component> <component> <observation moodCode= "EVN" classCode="OBS"> <templateId root="216.840.1.956360.07.04.22.4.2 " /> <id nullFlavor="NA" /> <code codeSystem="local" code= "SEGR" displayName="Neutrophils" /> <statusCode code="completed" /> <effectiveTime value="" /> <value unit="%" xsi: type="PQ" value="69" /> <referenceRange> <observationRange> <text>51-75</text> </observationRange> </ referenceRange> </observation> </component> <component> <observation moodCode="EVN" classCode="OBS"> <templateId root= "216.840.1.049608.07.04.22.4.2" /> <id nullFlavor="NA" /> < code codeSystem="local" code="NRBCA" displayName="Nucleated RBC Automated" /> <statusCode code="completed" /> <effectiveTime value= "" /> <value unit="/100WBC" xsi:type="PQ" value="0.0" /> <referenceRange> <observationRange> <text /> </observationRange> </referenceRange> </observation> </component> <component> <observation moodCode="EVN" classCode= "OBS"> <templateId root="840.1.189944.10.20.22.4.2" /> < id nullFlavor="NA" /> <code codeSystem="local" code="PLT" displayName= "Platelet Count" /> <statusCode code="completed" /> < effectiveTime value="527698739418" /> <value unit="K/uL" xsi:type="PQ" value="196" /> <referenceRange> <observationRange> <text>150-400</text> </observationRange> </ referenceRange> </observation> </component> <component> <observation moodCode="EVN" classCode="OBS"> <templateId root= "840.1.530188.10..22.4.2" /> <id nullFlavor="NA" /> < code codeSystem="local" code="RBC" displayName="RBC" /> <statusCode code="completed" /> <effectiveTime value="393787004642" /> < value unit="10*6/uL" xsi:type="PQ" value="3.85" /> <interpretationCode codeSystem="local" code="*" /> <referenceRange> < observationRange> <text>4.00-5.20</text> </ observationRange> </referenceRange> </observation> </ component> <component> <observation moodCode="EVN" classCode="OBS"> <templateId root="840.1.752965.10.20.22.4.2" /> <id nullFlavor="NA" /> <code codeSystem="local" code="RDW" displayName="RDW " /> <statusCode code="completed" /> <effectiveTime value= "807335500382" /> <value unit="%" xsi:type="PQ" value="12.4" /> <referenceRange> <observationRange> <text>11.5- 14.5</text> </observationRange> </referenceRange> </ observation> </component> <component> <observation moodCode= "EVN" classCode="OBS"> <templateId root="16.840.1.352876.10..22.4.2 " /> <id nullFlavor="NA" /> <code codeSystem="local" code= "WBCIR" displayName="WBC" /> <statusCode code="completed" /> < effectiveTime value="320283231054" /> <value unit="K/uL" xsi:type="PQ" value="10.0" /> <referenceRange> <observationRange> <text>4.8-10.8</text> </observationRange> </ referenceRange> </observation> </component> <component> <observation moodCode="EVN" classCode="OBS"> <templateId root= "10.31.840.1.975258...22.4.2" /> <id nullFlavor="NA" /> < code codeSystem="local" code="HBSAG" displayName="Hepatitis B Surface Antigen" / > <statusCode code="completed" /> <effectiveTime value= "536192087352" /> <value unit="" xsi:type="PQ" value="Negative" /> <referenceRange> <observationRange> <text /> </observationRange> </referenceRange> </observation> </component> <component> <observation moodCode="EVN" classCode= "OBS"> <templateId root="10.31.840.1.536207.22.4.2" /> < id nullFlavor="NA" /> <code codeSystem="local" code="RPR" displayName= "RPR" /> <statusCode code="completed" /> <effectiveTime value= "516878186198" /> <value unit="NA" xsi:type="PQ" value="Non-reactive" / > <referenceRange> <observationRange> <text /> </observationRange> </referenceRange> </observation > </component> <component> <observation moodCode="EVN" classCode="OBS"> <templateId root="2.16.840.1.486207.10..22.4.2" /> <id nullFlavor="NA" /> <code codeSystem="local" code="RUBIG" displayName="Rubella IgG" /> <statusCode code="completed" /> < effectiveTime value="951095877482" /> <value unit="NA" xsi:type="PQ" value="Positive" /> <referenceRange> <observationRange> <text /> </observationRange> </referenceRange> </observation> </component> <component> <observation moodCode="EVN" classCode="OBS"> <templateId root= "216.840.1.694313.10..22.4.2" /> <id nullFlavor="NA" /> < code codeSystem="local" code="VALERIY" displayName="Rubella IgG Index" /> <statusCode code="completed" /> <effectiveTime value="528914858376" / > <value unit="NA" xsi:type="PQ" value="1.71" /> < referenceRange> <observationRange> <text>=>1.00</text > </observationRange> </referenceRange> </observation > </component> </organizer> </entry> <entry> <organizer moodCode= "EVN" classCode="BATTERY"> <templateId root="10.31.840.1.260441.10.4.1 " /> <id nullFlavor="NA" /> <code codeSystem="local" code="GLU" displayName="Glucose" /> <statusCode code="completed" /> <component> <observation moodCode="EVN" classCode="OBS"> <templateId root= "840.1.032620.07.04.224.2" /> <id nullFlavor="NA" /> < code codeSystem="local" code="GLU" displayName="Glucose" /> < statusCode code="completed" /> <effectiveTime value="616999441605" /> <value unit="mg/dL" xsi:type="PQ" value="91" /> < referenceRange> <observationRange> <text>70-99</text> </observationRange> </referenceRange> </observation> </component> </organizer> </entry> <entry> <organizer moodCode="EVN " classCode="BATTERY"> <templateId root="840.1.098503.07.04.224.1" / > <id nullFlavor="NA" /> <code codeSystem="local" code="HIV" displayName="HIV Antigen/Antibody Combo" /> <statusCode code="completed" / > <component> <observation moodCode="EVN" classCode="OBS"> <templateId root="10.31.840.1.924888.10.4.2" /> <id nullFlavor="NA " /> <code codeSystem="local" code="HIV" displayName="HIV Antigen/ Antibody Combo" /> <statusCode code="completed" /> < effectiveTime value="770298291726" /> <value unit="NA" xsi:type="PQ" value="Negative" /> <referenceRange> <observationRange> <text /> </observationRange> </referenceRange> </observation> </component> </organizer> </entry> <entry> < organizer moodCode="EVN" classCode="BATTERY"> <templateId root= "216.840.1.949339.10..22.4.1" /> <id nullFlavor="NA" /> <code codeSystem="local" code="TS1" displayName="Type and Screen" /> <statusCode code="completed" /> <component> <observation moodCode="EVN" classCode="OBS"> <templateId root="216.840.1.494146.10...4.2" /> <id nullFlavor="NA" /> <code codeSystem="local" code="ABOR1" displayName="ABO and Rh" /> <statusCode code="completed" /> < effectiveTime value="" /> <value unit="NA" xsi:type="PQ" value="" /> <referenceRange> <observationRange> <text /> </observationRange> </referenceRange> </ observation> </component> <component> <observation moodCode= "EVN" classCode="OBS"> <templateId root="216.840.1.035163....4.2 " /> <id nullFlavor="NA" /> <code codeSystem="local" code= "ABSC1" displayName="Antibody Screen" /> <statusCode code="completed" / > <effectiveTime value="" /> <value unit="NA" xsi: type="PQ" value="" /> <referenceRange> <observationRange> <text /> </observationRange> </referenceRange> </observation> </component> </organizer> </entry> <entry> < organizer moodCode="EVN" classCode="BATTERY"> <templateId root= "216.840.1.875676.10..4.1" /> <id nullFlavor="NA" /> <code codeSystem="local" code="NNW9860" displayName="Drug Screen + ETOH" /> < statusCode code="completed" /> <component> <observation moodCode= "EVN" classCode="OBS"> <templateId root="10.31.840.1.649648.07.04.224.2 " /> <id nullFlavor="NA" /> <code codeSystem="local" code= "Xsb5098" displayName="Zoning Technician" /> <statusCode code="completed" /> <effectiveTime value="599169372505" /> <value unit="" xsi:type= "PQ" value="[place]" /> <referenceRange> < observationRange> <text /> </observationRange> </referenceRange> </observation> </component> <component> <observation moodCode="EVN" classCode="OBS"> <templateId root= "10.31.840.1.908210.07.04.224.2" /> <id nullFlavor="NA" /> < code codeSystem="local" code="Cps5500" displayName="Donor ID By" /> < statusCode code="completed" /> <effectiveTime value="105041959906" /> <value unit="" xsi:type="PQ" value="Photo ID" /> < referenceRange> <observationRange> <text /> < /observationRange> </referenceRange> </observation> </ component> <component> <observation moodCode="EVN" classCode="OBS"> <templateId root="16.840.1.278492.07.04.22.4.2" /> <id nullFlavor="NA" /> <code codeSystem="local" code="Avj0513" displayName= "Ethanol, Urine" /> <statusCode code="completed" /> < effectiveTime value="643615931136" /> <value unit="mg/dL" xsi:type="PQ " value="<10.00" /> <interpretationCode codeSystem="local" code="L" /> <referenceRange> <observationRange> <text> 20.00-80.00</text> </observationRange> </referenceRange> </observation> </component> <component> <observation moodCode="EVN" classCode="OBS"> <templateId root= "2.16.840.1.129858....4.2" /> <id nullFlavor="NA" /> < code codeSystem="local" code="Qnt4695" displayName="Location" /> < statusCode code="completed" /> <effectiveTime value="761083305802" /> <value unit="" xsi:type="PQ" value="[employer] Employee" /> < referenceRange> <observationRange> <text /> < /observationRange> </referenceRange> </observation> </ component> <component> <observation moodCode="EVN" classCode="OBS"> <templateId root="2.16.840.1.755879.10..22.4.2" /> <id nullFlavor="NA" /> <code codeSystem="local" code="Jql1332" displayName= "Reason For Test" /> <statusCode code="completed" /> < effectiveTime value="787155522232" /> <value unit="" xsi:type="PQ" value="Pre-Employment" /> <referenceRange> <observationRange > <text /> </observationRange> </referenceRange > </observation> </component> <component> <observation moodCode="EVN" classCode="OBS"> <templateId root= "2.16.840.1.127919.10..22.4.2" /> <id nullFlavor="NA" /> < code codeSystem="local" code="Pda4937" displayName="Temperature In Range" /> <statusCode code="completed" /> <effectiveTime value= "486324800909" /> <value unit="DegF" xsi:type="PQ" value="YES" /> <referenceRange> <observationRange> <text>90.00- 100.00</text> </observationRange> </referenceRange> < /observation> </component> <component> <observation moodCode= "EVN" classCode="OBS"> <templateId root="2.16.840.1.950035.10..4.2 " /> <id nullFlavor="NA" /> <code codeSystem="local" code= "Ory8805" displayName="Urine Amphetamines" /> <statusCode code= "completed" /> <effectiveTime value="677368357191" /> <value unit="" xsi:type="PQ" value="NEGATIVE" /> <referenceRange> < observationRange> <text /> </observationRange> </referenceRange> </observation> </component> <component> <observation moodCode="EVN" classCode="OBS"> <templateId root= "216.840.1.738576.10..4.2" /> <id nullFlavor="NA" /> < code codeSystem="local" code="Yet5975" displayName="Urine Barbiturates" /> <statusCode code="completed" /> <effectiveTime value="340952305540 " /> <value unit="" xsi:type="PQ" value="NEGATIVE" /> < referenceRange> <observationRange> <text /> < /observationRange> </referenceRange> </observation> </ component> <component> <observation moodCode="EVN" classCode="OBS"> <templateId root="216.840.1.395624.10..4.2" /> <id nullFlavor="NA" /> <code codeSystem="local" code="Jrs0201" displayName= "Urine Benzodiazepines" /> <statusCode code="completed" /> < effectiveTime value="" /> <value unit="" xsi:type="PQ" value="NEGATIVE" /> <referenceRange> <observationRange> <text /> </observationRange> </referenceRange> </observation> </component> <component> <observation moodCode="EVN" classCode="OBS"> <templateId root= "216.840.1.884043.10..4.2" /> <id nullFlavor="NA" /> < code codeSystem="local" code="Efl2949" displayName="Urine Cocaine" /> < statusCode code="completed" /> <effectiveTime value="" /> <value unit="" xsi:type="PQ" value="NEGATIVE" /> < referenceRange> <observationRange> <text /> < /observationRange> </referenceRange> </observation> </ component> <component> <observation moodCode="EVN" classCode="OBS"> <templateId root="216.840.1.883397.07.04.22.4.2" /> <id nullFlavor="NA" /> <code codeSystem="local" code="Uhe2231" displayName= "Urine MDMA" /> <statusCode code="completed" /> < effectiveTime value="" /> <value unit="" xsi:type="PQ" value="NEGATIVE" /> <referenceRange> <observationRange> <text /> </observationRange> </referenceRange> </observation> </component> <component> <observation moodCode="EVN" classCode="OBS"> <templateId root= "216.840.1.586979.10...4.2" /> <id nullFlavor="NA" /> < code codeSystem="local" code="Nyo0824" displayName="Urine Methadone" /> <statusCode code="completed" /> <effectiveTime value="" / > <value unit="" xsi:type="PQ" value="NEGATIVE" /> < referenceRange> <observationRange> <text /> < /observationRange> </referenceRange> </observation> </ component> <component> <observation moodCode="EVN" classCode="OBS"> <templateId root="216.840.1.244408.10...4.2" /> <id nullFlavor="NA" /> <code codeSystem="local" code="Pcf7783" displayName= "Urine Methamphetamines" /> <statusCode code="completed" /> < effectiveTime value="844757688043" /> <value unit="" xsi:type="PQ" value="NEGATIVE" /> <referenceRange> <observationRange> <text /> </observationRange> </referenceRange> </observation> </component> <component> <observation moodCode="EVN" classCode="OBS"> <templateId root= "216.840.1.726249.10..4.2" /> <id nullFlavor="NA" /> < code codeSystem="local" code="Hjg5352" displayName="Urine Opiates" /> < statusCode code="completed" /> <effectiveTime value="192065546067" /> <value unit="" xsi:type="PQ" value="NEGATIVE" /> < referenceRange> <observationRange> <text /> < /observationRange> </referenceRange> </observation> </ component> <component> <observation moodCode="EVN" classCode="OBS"> <templateId root="216.840.1.659552.10..4.2" /> <id nullFlavor="NA" /> <code codeSystem="local" code="Fse7220" displayName= "Urine Oxycodone" /> <statusCode code="completed" /> < effectiveTime value="" /> <value unit="" xsi:type="PQ" value="NEGATIVE" /> <referenceRange> <observationRange> <text /> </observationRange> </referenceRange> </observation> </component> <component> <observation moodCode="EVN" classCode="OBS"> <templateId root= "216.840.1.809726.10..4.2" /> <id nullFlavor="NA" /> < code codeSystem="local" code="Xaz0438" displayName="Urine PCP" /> < statusCode code="completed" /> <effectiveTime value="" /> <value unit="" xsi:type="PQ" value="NEGATIVE" /> < referenceRange> <observationRange> <text /> < /observationRange> </referenceRange> </observation> </ component> <component> <observation moodCode="EVN" classCode="OBS"> <templateId root="216.840.1.808770.10..4.2" /> <id nullFlavor="NA" /> <code codeSystem="local" code="Klb0423" displayName= "Urine THC Metabolite" /> <statusCode code="completed" /> < effectiveTime value="" /> <value unit="" xsi:type="PQ" value="NEGATIVE" /> <referenceRange> <observationRange> <text /> </observationRange> </referenceRange> </observation> </component> </organizer> </entry> <entry> < organizer moodCode="EVN" classCode="BATTERY"> <templateId root= "2.16.840.1.484831.10.20.22.4.1" /> <id nullFlavor="NA" /> <code codeSystem="local" code="271040" displayName="Varicella-Zoster V Ab, IgG" /> <statusCode code="completed" /> <component> <observation moodCode ="EVN" classCode="OBS"> <templateId root= "2.16.840.1.773579.10.20.22.4.2" /> <id nullFlavor="NA" /> < code codeSystem="local" code="794687" displayName="VARICELLA ZOSTER IGG" /> <statusCode code="completed" /> <effectiveTime value= "722922030203" /> <value unit="INDEX" xsi:type="PQ" value="<135" /> <interpretationCode codeSystem="local" code="L" /> < referenceRange> <observationRange> <text>IMMUNE >165< /text> </observationRange> </referenceRange> </ observation> </component> </organizer> </entry></section> Encounters ACCT No. Visit Date/Time Discharge Status Pt. Type Provider Facility Loc./Unit Complaint [id number] 12/21/2017 16:21:00 12/21/2017 17:53:00 DIS Emergency Gwendolyn GENTILE, Pedro [facility] W.JESSICA [id number] 08/12/2017 07:45:00 Document Registration [id number] 05/28/2018 10:45:00 05/28/2018 23:59:00 DIS Outpatient UNLISTED, UNLISTED [id number] 09/02/2016 07:00:00 09/02/2016 23:59:00 DIS Outpatient Ernie Andrade [id number] 12/03/2017 20:16:00 12/03/2017 23:00:00 DIS Emergency Gonzalez Howard [facility] ED abd pain [id number] 05/12/2017 19:34:00 05/12/2017 20:51:00 DIS Emergency Barrow Ehsan [facility] ED Hyperventilation [id number] 02/27/2017 09:00:00 02/27/2017 09:56:00 DIS Emergency Barrow Jacob [facility] ED lt eye lid swelling bumps/ bug bites? [id number] 12/04/2017 05:17:22 Document Registration [id number] 02/28/2017 05:21:16 Document Registration [id number] 12/24/2017 22:26:30 ACT Document Registration [id number] 09/05/2018 22:22:00 09/05/2018 23:59:59 CLS Outpatient MEG KIRK MD [facility] LDRP [id number] 05/14/2018 16:00:00 05/14/2018 23:59:59 CLS Outpatient ALETHEA LOVE DO S [facility] RAD [id number] 03/26/2018 14:03:00 03/26/2018 23:59:00 DIS Outpatient Roseann Baird I [facility] Rad OB Sono/Dating/B Mikey/RG [id number] 03/26/2018 12:59:00 03/26/2018 23:59:00 DIS Outpatient Willie Baez [facility] FM NPV2/IOB LMP 3MO AGO
[2018-09-10] MEDS ORDERED: SUFENTA 0.6MCG/ML BUPIVA 0.125 100 ML ONE (02:25)
[2018-09-10] MEDS ORDERED: LACTATED RINGERS 1,000 ML IV ONE ×2 (02:48)
[2018-09-10] MEDS ORDERED: BUPIVACAINE 0.25% 30 ML (SENSORCAINE) VIAL ONE (02:56)
[2018-09-10] MEDS ORDERED: fentaNYL INJECTION 100 MCG/2 ML AMP ONE (02:56)
[2018-09-10] MEDS ORDERED: LIDOCAINE PF 2% 5 ML (XYLOCAINE) VIAL ONE (02:56)
[2018-09-10] MEDS ORDERED: EPIDURAL (SUFENTA 0.6MCG/ML BUPIVA 0.125%) 100 ML BAG EPI PRN (03:00)
[2018-09-10] MEDS ORDERED: NALOXONE 0.4 MG/ML 1 ML (NARCAN) VIAL IV PRN (03:00)
[2018-09-10] MEDS ORDERED: ONDANSETRON 4 MG/2 ML (SDV) Z0FRAN IV PRN (03:00)
[2018-09-10] MEDS ORDERED: CATHETER FLUSH 10 ML SYR IV SCH ×3 (06:00→14:00)
--- NOTE | 2018-09-10 06:37 | NUR ---
This Rn called Dr Moura to notify of patient complete status, patient now breathing through contractions. to be at hospital soon.
[2018-09-10] MEDS ORDERED: OXYTOCIN/NORMAL SALINE 500 ML IV ONE ×2 (06:39→07:51)
[2018-09-10] MEDS ORDERED: LIDOCAINE/EPI 2% 1:200,00 (XYLOCAINE) 10 ML VIAL INJ ONE (07:00)
[2018-09-10] MEDS ORDERED: LIDOCAINE/EPI 2% 1:200,00 (XYLOCAINE) 10 ML VIAL ONE (07:03)
[2018-09-10] MEDS ORDERED: OXYTOCIN/NORMAL SALINE 500 ML IV SCH (07:30)
[2018-09-10] MEDS: OXYTOCIN/NORMAL SALINE 500 ML IV SCH ×2 (07:30→08:18)
[2018-09-10] MEDS ORDERED: MEASLES,MUMPS,RUBELLA 1 EA INJ SQ ONE (08:00)
[2018-09-10] MEDS ORDERED: HYDROcodone/APAP 5 MG/325 MG (LORTAB) TAB PO PRN (08:00)
[2018-09-10] MEDS ORDERED: TETANUS,DIPTH,PERTUSS P/F (BOOSTRIX) 0.5 ML VIAL IM ONE (08:00)
[2018-09-10] MEDS ORDERED: WITCH HAZEL(TUCKS) 40 EA JAR TOP PRN (08:00)
[2018-09-10] MEDS ORDERED: BENZOCAINE/MENTHOL (DERMOPLAST) 56 ML CAN TP PRN (08:00)
--- NOTE | 2018-09-10 08:04 | History & Physical-OB ---
OB - Chief Complaint & HPI Date/Time Date of Admission: Date of Admission: Sep 10, 2018 at 01:40 Date seen by a Provider: Sep 11, 2018 Time Seen by a Provider: 06:45 Chief Complaint/History OB-Reason for Admission/Chief: Labor Hx : 1 Hx Para: 0 Expected Date of Delivery: Oct 02, 2018 Gestational Age in Weeks: 36 Gestational Age in Days: 6 Admission Nurse Assessment Rev: Yes History of Labs A pos Antibody neg RI RPR NR HBsAg NR HIV NR GC neg GBS neg Allergies and Home Medications Allergies Coded Allergies: No Known Drug Allergies (Unverified , 09/05/18) Home Medications No Active Prescriptions or Reported Meds Patient Home Medication List Home Medication List Reviewed: Yes OB - History Hx of Present Care: Yes Ultrasounds: Normal mid trimester US Obstetrical Complications: None Medical Complications: None Obstetrical History Hx : 1 Delivery History Adverse Rxn to Tranfusion: No Patient Past Medical History n/a Social History/Family History Recent Infectious Disease Expo: No Alcohol Use: Denies Use Recreational Drug Use: No Immunizations Date of Influenza Vaccine: Aug 15, 2018 OB - Admission Exam Physical Exam Vitals: Vital Signs 09/10/18 09/10/18 05:45 07:00 Temp 98.2 Pulse 74 Resp 18 B/P (MAP) 133/79 (97) Pulse Ox 99 O2 Delivery Room Air HEENT: NCAT Heart: Rhythm Normal Abdomen: Non tender Extremities: Normal Reflexes: Normal Cervical Dilatation: 3cm Effacement: 75% Station: -1 Membranes: Ruptured Amniotic Fluid: Clear Heart Rate: 130's Accelerations: Accelerations Present Decelerations: No Decelerations Short Term Variability: Present Senior Living Variability: Average (6-25) Contractions on Admission: 6-10 Minutes Apart Intensity: Mild Labs Laboratory Tests Test 09/10/18 01:50 Range/Units White Blood Count 13.5 H 4.3-11.0 10^3/uL Red Blood Count 3.75 L 4.35-5.85 10^6/uL Hemoglobin 11.6 11.5-16.0 G/DL Hematocrit 34 L 35-52 % Mean Corpuscular Volume 90 80-99 FL Mean Corpuscular Hemoglobin 31 25-34 PG Mean Corpuscular Hemoglobin Concent 34 32-36 G/DL Red Cell Distribution Width 12.9 10.0-14.5 % Platelet Count 246 130-400 10^3/uL Mean Platelet Volume 9.3 7.4-10.4 FL Neutrophils (%) (Auto) 74 42-75 % Lymphocytes (%) (Auto) 17 12-44 % Monocytes (%) (Auto) 9 0-12 % Eosinophils (%) (Auto) 1 0-10 % Basophils (%) (Auto) 0 0-10 % Neutrophils # (Auto) 9.9 H 1.8-7.8 X 10^3 Lymphocytes # (Auto) 2.3 1.0-4.0 X 10^3 Monocytes # (Auto) 1.2 H 0.0-1.0 X 10^3 Eosinophils # (Auto) 0.1 0.0-0.3 10^3/uL Basophils # (Auto) 0.0 0.0-0.1 10^3/uL OB - Assessment/Plan/Diagnosis Assessment Assessment: active labor Admission Dx 18 yo @ 36.6 labor ROM GBS neg Admission Status: Inpatient Order (span 2 midnights) Reason for Inpatient Admission: labor 36.6 weeks Plan Plan: Expectant Management ALETHEA LOVE DO Sep 10, 2018 08:04
--- NOTE | 2018-09-10 08:07 | OB Labor & Delivery Record ---
L&D History Date of Service Date of Service: Sep 10, 2018 History Expected Date of Delivery: Oct 02, 2018 Gestational Age in Weeks: 36 Hx : 1 Hx Para: 0 Complications Events: Routine care Operative Indications (Cesarea: N/A-Vaginal Delivery Intrapartal Events: None L&D Stage1 Stage One Onset of Labor - Date: Sep 10, 2018 Monitors and Tracing Monitor Mode: External Heart Rate: 145 Station: +2 Short Term Variability: Present Presentation: Vertex Vital Signs VS - Last 72 Hours, by Label 09/10/18 09/10/18 09/10/18 09/10/18 01:25 02:05 03:00 03:03 Temp 98.0 99.4 Pulse 86 77 82 80 Resp 18 18 18 B/P (MAP) 123/68 (86) 115/71 (86) 112/75 (87) 113/66 (82) Pulse Ox 98 97 O2 Delivery Room Air Room Air Room Air Room Air 09/10/18 09/10/18 09/10/18 09/10/18 03:10 03:13 03:15 03:18 Pulse 89 77 67 70 Resp 18 18 18 18 B/P (MAP) 108/66 (80) 115/65 (82) 122/59 (80) 117/59 (78) Pulse Ox 97 97 95 O2 Delivery Room Air Room Air Room Air Room Air 09/10/18 09/10/18 09/10/18 09/10/18 03:21 03:24 03:30 03:35 Pulse 82 81 72 78 Resp 18 18 18 18 B/P (MAP) 118/59 (78) 115/59 (77) 115/59 (77) 119/65 (83) Pulse Ox 96 96 97 O2 Delivery Room Air Room Air Room Air Room Air 09/10/18 09/10/18 09/10/18 09/10/18 03:40 03:45 03:50 03:55 Pulse 73 71 68 72 Resp 18 18 18 18 B/P (MAP) 126/65 (85) 122/65 (84) 124/70 (88) 117/65 (82) Pulse Ox 96 97 95 97 O2 Delivery Room Air Room Air Room Air Room Air 09/10/18 09/10/18 09/10/18 09/10/18 04:00 04:15 04:30 04:45 Pulse 69 73 75 66 Resp 18 18 18 18 B/P (MAP) 131/70 (90) 111/61 (78) 130/73 (92) 126/72 (90) Pulse Ox 96 97 97 96 O2 Delivery Room Air Room Air Room Air Room Air 09/10/18 09/10/18 09/10/18 09/10/18 05:00 05:04 05:07 05:10 Pulse 75 66 63 72 Resp 18 18 18 18 B/P (MAP) 122/67 (85) 126/74 (91) 135/85 (102) Pulse Ox 97 96 96 O2 Delivery Room Air Room Air Room Air Room Air 09/10/18 09/10/18 09/10/18 09/10/18 05:13 05:15 05:20 05:23 Pulse 77 74 69 75 Resp 18 18 18 18 B/P (MAP) 125/74 (91) 129/75 (93) 132/69 (90) 136/78 (97) Pulse Ox 98 O2 Delivery Room Air Room Air Room Air Room Air 09/10/18 09/10/18 09/10/18 09/10/18 05:25 05:30 05:35 05:40 Pulse 80 77 65 65 Resp 18 18 18 18 B/P (MAP) 121/56 (77) 121/58 (79) 125/75 (92) 125/70 (88) Pulse Ox 98 97 96 96 O2 Delivery Room Air Room Air Room Air Room Air 09/10/18 09/10/18 09/10/18 09/10/18 05:45 05:50 05:55 06:00 Temp 98.2 Pulse 65 66 65 77 Resp 18 18 18 18 B/P (MAP) 119/62 (81) 119/58 (78) 121/58 (79) 113/56 (75) Pulse Ox 96 95 95 95 O2 Delivery Room Air Room Air Room Air Room Air 09/10/18 09/10/18 09/10/18 09/10/18 06:15 06:30 06:42 06:45 Pulse 67 82 92 134 Resp 18 18 18 18 B/P (MAP) 114/55 (74) 122/78 (93) 123/68 (86) 134/82 (99) Pulse Ox 95 98 98 99 O2 Delivery Room Air Room Air Room Air Room Air 1209/10/18 09/10/18 09/10/18 06:48 06:50 06:53 06:55 Pulse 90 84 80 81 Resp 18 18 18 18 B/P (MAP) 134/82 (99) 126/83 (97) 134/74 (94) 139/75 (96) Pulse Ox 99 98 98 99 O2 Delivery Room Air Room Air Room Air Room Air 09/10/18 07:00 Pulse 74 Resp 18 B/P (MAP) 133/79 (97) Pulse Ox 99 O2 Delivery Room Air Rupture of Membranes Spontaneous Ruture of Membrane: Yes Amniotic Membrane Rupture Time: 0000 Amniotic Fluid Membrane Tests: Nitrazine Positive Induction/Anesthesia Epidural Cath Placement - Time: 0310 L&D Stage2 Stage Two Stage II Date: Sep 10, 2018 Monitors and Tracing Monitor Mode: External Heart Rate: 145 Monitor Accelerations: Uniform Monitor Decelerations: Variable Charge Gang Weigher Variability: Average (6-10) Short Term Variability: Present Position: Right Occiput Anterior Presentation: Vertex Cord Descript/Complications Cord Vessel Description: 3 Vessels Complications nuchal cord reduced x 1 Delivery Type Infant Delivery Method: Spontaneous Vaginal Anterior Shoulder: Right Episiotomy/Perineal Laceration Laceraction(s)/Extensions: Yes Episiotomy Description: Midline Degree (describe repair) midline epis repaired using 3-0 and 2-0 vicryl suture Condition of Infant Delivery Notes Live female infant weight 6lbs 1 oz, APGARs pending patient taken to nursery for breathing concerns on cpap Condition of Infant Condition of : Living Exam: No Observed Abnormalities Resuscitation Resuscitation: Bag and Mask L&D Stage3 Stage Three Stage III Date: Sep 10, 2018 Pictocin Pitocin Administration Comment: 30 mu wide open at delivery of placenta Placenta Delivery Placenta Delivery: Spontaneous Delivery Summary Summary Estimated blood loss (mL): 350 Attending at delivery: Alethea Love DO Condition of Delivery Examined: Cervix Examined, Uterus Explored Post Hemorrhage: No Condition of Mother stable Condition of Infant (s) stable ALETHEA LOVE DO Sep 10, 2018 08:07
--- NOTE | 2018-09-10 08:08 | Discharge Inst-Women's Service ---
Discharge Inst-Women's Serv Depart Medication/Instructions New, Converted or Re-Newed RX: RX on Chart Consults/Follow Up Additional Follow Up: Yes Orders/Referrals Dr. Love in 6 weeks Activity Activity: Activity as Tolerated Driving Instructions: No Driving for 1 Week NO SMOKING: NO SMOKING Nothing Inside Vagina: No Douching, No Porter, No Tampons Diet Discharge Diet: No Restrictions Symptoms to Report to : Bleeding Excessive, Pain Increased, Fever Over 101 Degrees F, Vaginal Bleeding Increase, Questions/Concerns For Any Problems or Questions: Contact Your Physician ALETHEA LOVE DO Sep 10, 2018 08:08
[2018-09-10] MEDS ORDERED: FERR325T18 PO (08:10)
[2018-09-10] MEDS ORDERED: ACHD5005 PO (08:10)
[2018-09-10] MEDS ORDERED: IBUP-844 PO (08:10)
[2018-09-10] MEDS ORDERED: DOCU100C37 PO (08:10)
[2018-09-10] MEDS: IBUPROFEN 600 MG (MOTRIN) TAB PO SCH ×3 (08:22→20:35)
--- NOTE | 2018-09-10 09:30 | NUR ---
0715: SPONTANTEOUS VAGINAL DELIVERY OF 36.[address] PER [address] LOVE. 0716: CORD CLAMPED AND CUT 0728: PLACENTA DELIVERED, OXYTOCIN RATE WIDE OPEN PER DR LOVE ORDER 0728: TO NURSERY AT THIS TIME 0730: RECOVERY PERIOD BEGINS AT THIS TIME. FUNDUS FIRM, MIDLINE, 3 BELOW UMBILICUS, SCANT BLEEDING. PT DENIES PAIN AT THIS TIME, DENIES NEEDS. CALL LIGHT WITHIN REACH. FAMILY REMAINS AT BEDSIDE. 0745: FUNDUS FIRM, MIDLINE, 3 BELOW UMBILICUS, SCANT BLEEDING. PT DENIES PAIN AT THIS TIME, DENIES NEEDS. CALL LIGHT WITHIN REACH. FAMILY REMAINS AT BEDSIDE. 0800:FUNDUS FIRM, MIDLINE, 2 BELOW UMBILICUS, LIGHT BLEEDING. PT DENIES PAIN AT THIS TIME, DENIES NEEDS. CALL LIGHT WITHIN REACH. FAMILY REMAINS AT BEDSIDE. 0815:FUNDUS FIRM, MIDLINE, 2 BELOW UMBILICUS, LIGHT BLEEDING. PT DENIES PAIN AT THIS TIME, DENIES NEEDS. CALL LIGHT WITHIN REACH. FAMILY REMAINS AT BEDSIDE. 0830:RECOVERY PERIOD OFFICIALLY ENDS AT THIS TIME. FUNDUS FIRM, MIDLINE, 2 BELOW UMBILICUS, LIGHT BLEEDING. PT DENIES PAIN AT THIS TIME, DENIES NEEDS. CALL LIGHT WITHIN REACH. FAMILY REMAINS AT BEDSIDE. PT UNABLE TO MOVE RIGHT LEG STILL AT THIS TIME. 0900: FUNDUS FIRM, MIDLINE, 2 BELOW UMBILICUS, LIGHT BLEEDING. PT DENIES PAIN AT THIS TIME, DENIES NEEDS. CALL LIGHT WITHIN REACH. FAMILY REMAINS AT BEDSIDE. PT UNABLE TO MOVE RIGHT LEG STILL AT THIS TIME. 0930:FUNDUS FIRM, MIDLINE, 2 BELOW UMBILICUS, LIGHT BLEEDING. PT DENIES PAIN AT THIS TIME, DENIES NEEDS. CALL LIGHT WITHIN REACH. FAMILY REMAINS AT BEDSIDE. PT UNABLE TO MOVE RIGHT LEG STILL AT THIS TIME. 1000:FUNDUS FIRM, MIDLINE, 2 BELOW UMBILICUS, LIGHT BLEEDING. PT DENIES PAIN AT THIS TIME, DENIES NEEDS. CALL LIGHT WITHIN REACH. FAMILY REMAINS AT BEDSIDE. PT UNABLE TO LIFT RIGHT LEG STILL AT THIS TIME. 1030:FUNDUS FIRM, MIDLINE, 2 BELOW UMBILICUS, LIGHT BLEEDING. PT DENIES PAIN AT THIS TIME, DENIES NEEDS. PERICARE DONE BY THIS RN. PT UNABLE TO LIFT BOTH LEGS. RN ASSISTS PT TO SIDE OF BED AND TO WHEELCHAIR WITHOUT COMPLICATIONS. 1045: THIS RN TAKES PT TO SEE IN NURSERY BEFORE TRANSFER TEAM ARRIVES. THIS RN GATHERS BELONGINGS AND TRANSFERS TO ROOM [address] ON [address].
[2018-09-10] MEDS: FERROUS SULF 325 MG (IRON) TAB PO SCH (19:56)
[2018-09-10] MEDS: DOCUSATE SODIUM 100 MG (COLACE) CAP PO SCH ×2 (19:56→20:35)
[2018-09-11 00:45] VITALS: BP 98/57
[2018-09-11 04:51] VITALS: BP 114/73
[2018-09-11] MEDS: IBUPROFEN 600 MG (MOTRIN) TAB PO SCH ×2 (04:51→11:36)
[2018-09-11 06:12] LABS: BASOPHILS % (AUTO) 0 % (0-10); EOSINOPHILS # (AUTO) 0.1 10^3/uL (0.0-0.3); EOSINOPHILS % (AUTO) 1 % (0-10); HEMATOCRIT 33 % (35-52); HEMOGLOBIN 10.7 G/DL (11.5-16.0); LYMPHOCYTES # (AUTO) 2.8 X 10^3 (1.0-4.0); LYMPHOCYTES % (AUTO) 21 % (12-44); MEAN CORPUSCULAR HEMOGLOBIN 30 PG (25-34); MEAN CORPUSCULAR HGB CONC 33 G/DL (32-36); MEAN CORPUSCULAR VOLUME 93 FL (80-99); MEAN PLATELET VOLUME 9.8 FL (7.4-10.4); MONOCYTES # (AUTO) 1.1 X 10^3 (0.0-1.0); MONOCYTES % (AUTO) 8 % (0-12); NEUTROPHILS # (AUTO) 9.7 X 10^3 (1.8-7.8); NEUTROPHILS % (AUTO) 70 % (42-75); PLATELET COUNT 221 10^3/uL (130-400); RED BLOOD COUNT 3.53 10^6/uL (4.35-5.85); RED CELL DISTRIBUTION WIDTH 12.8 % (10.0-14.5); WHITE BLOOD COUNT 13.8 10^3/uL (4.3-11.0)
[2018-09-11] MEDS ORDERED: PRENATAL VITAMIN 1 EA TAB PO SCH (07:00)
--- NOTE | 2018-09-11 09:33 | NUR ---
Dr Moura to see patient and review plan of care with discharge in place.
--- NOTE | 2018-09-11 10:21 | Postpartum Progress Note ---
Note Note Day # 1 Subjective: Patient is without complaints. Ambulating, voiding. Tolerating a regular diet without nausea or vomiting. Normal lochia. Pain is well controlled with oral pain medications. transferred to [place] for resp distress. Objective: Vital Sign - Last 24 Hours 09/10/18 09/10/18 09/10/18 09/10/18 10:43 12:00 15:57 20:35 Temp 98.6 98.4 98.3 Pulse 65 70 73 68 Resp 16 16 16 B/P (MAP) 117/56 (76) 105/58 (74) 106/56 (73) 115/68 (84) Pulse Ox 96 96 96 O2 Delivery Room Air Room Air Room Air Room Air 09/11/18 09/11/18 00:45 04:51 Temp 98.9 98.3 Pulse 63 64 Resp 18 18 B/P (MAP) 98/57 (71) 114/73 (87) Pulse Ox 97 97 O2 Delivery Room Air Room Air Intake and Output 09/10/18 09/10/18 09/11/18 15:00 23:00 07:00 Intake Total 2900 ml 800 ml Balance 2900 ml 800 ml Physical Exam: General - Alert and oriented, no apparent distress Abdomen - Soft, appropriately tender to palpation, non-distended, fundus firm at umbilicus Extremities - no edema, negative Benito's bilaterally Assessment: PPD 1 NVD 36.5 week delivery Acute blood loss anemia Plan: Routine care. Encourage breast feeding. Encourage ambulation. Ferrous sulfate supplementation. Plan for discharge today Vitals - Labs Vital Signs - I&O Vital Signs Date Time Temp Pulse Resp B/P (MAP) Pulse Ox O2 Delivery O2 Flow Rate FiO2 09/11/18 04:51 98.3 64 18 114/73 (87) 97 Room Air 09/11/18 00:45 98.9 63 18 98/57 (71) 97 Room Air 09/10/18 20:35 98.3 68 16 115/68 (84) 96 Room Air 09/10/18 15:57 98.4 73 16 106/56 (73) 96 Room Air 09/10/18 12:00 98.6 70 16 105/58 (74) 96 Room Air 09/10/18 10:43 65 117/56 (76) Room Air I & O 09/11/18 07:00 Intake Total 3700 ml Balance 3700 ml Labs Laboratory Tests 09/11/18 05:32: White Blood Count 13.8H, Red Blood Count 3.53L, Hemoglobin 10.7L, Hematocrit 33L , Mean Corpuscular Volume 93, Mean Corpuscular Hemoglobin 30, Mean Corpuscular Hemoglobin Concent 33, Red Cell Distribution Width 12.8, Platelet Count 221, Mean Platelet Volume 9.8, Neutrophils (%) (Auto) 70, Lymphocytes (%) (Auto) 21, Monocytes (%) (Auto) 8, Eosinophils (%) (Auto) 1, Basophils (%) (Auto) 0, Neutrophils # (Auto) 9.7H, Lymphocytes # (Auto) 2.8, Monocytes # (Auto) 1.1H, Eosinophils # (Auto) 0.1, Basophils # (Auto) 0.0 ALETHEA LOVE DO Sep 11, 2018 10:21 am
--- NOTE | 2018-09-11 11:25 | NUR ---
Discharge instructions explained, signed and copy to patient. pt verbalized understanding of instructions and denied questions. prescriptions given
[2018-09-11 11:30] VITALS: BP 107/57
[2018-09-11] MEDS: DOCUSATE SODIUM 100 MG (COLACE) CAP PO SCH (11:36)
[2018-09-11] MEDS: FERROUS SULF 325 MG (IRON) TAB PO SCH (11:36)
--- NOTE | 2018-09-11 12:00 | NUR ---
discharged to home. ambulates self downstairs accompanied by staff. to private vehicle with belongings in hand
--- NOTE | 2018-09-14 13:19 | Physician Query Clarification ---
PQ-Further Specificity Admission/Discharge Admission Date: Sep 10, 2018 at 01:40 Discharge Date: Sep 11, 2018 at 12:00 The medical record reflects the following clinical scenario: History/Risk Factors: delivery, anemia Clinical Findings: EBL 350, Hgb 11.6 > 10.7, Hct 34 > 33 Treatment: Ferrous sulfate Question: Can you further specify anemia per the clinical indicators above? Please document below. 1. anemia due to dilutional anemia 2. anemia due to acute blood loss anemia 3. Other, with explanation of the clinical findings. 4. Clinically undetermined, no explanation for the clinical findings. PHYSICIAN RESPONSE Can you specify per above: 1 Explanation/Clinical Findings Acute blood loss anemia In responding to this query, please exercise your independent professional judgment. The purpose of this communication is to more accurately reflect the complexity of your patients condition. The fact that a question is asked does not imply that any particular answer is desired or expected. Thank you for your timely response to this clarification. Requestors name: Edilson THIS PHYSICIAN QUERY FORM IS A PERMANENT PART OF THE MEDICAL RECORD EDILSON GOMEZ Sep 14, 2018 13:19 ALETHEA LOVE DO Sep 14, 2018 15:45
--- NOTE | 2018-09-17 15:07 | Physician Query-Final Dx ---
PARDEEP GRANDE 09/17/18 1507: Final Diagnosis Give Final Diagnosis Please give Final Diagnosis ALETHEA LOVE DO 09/17/18 1528: Final Diagnosis Give Final Diagnosis PPD 2 NVD PARDEEP GRANDE Sep 17, 2018 15:07 ALETHEA LOVE DO Sep 17, 2018 15:28
== END 2018-09-11 12:00 | disposition home or self-care (01) | DRG 806 ==
LOC: WSo 01:10 → LDRP 01:10 → WSo 01:39 → LDRP 01:40
PROVIDERS: ADMIT Obstetrics & Gynecology; ATTEND Obstetrics & Gynecology
PROC: 10E0XZZ Delivery of Products of Conception, External Approach (ICD-10-PCS; principal; 2018-09-10)
PROC: 0W8NXZZ Division of Female Perineum, External Approach (ICD-10-PCS; 2018-09-10)
DX: O60.14X0 Preterm labor third trimester with preterm delivery third trimester, not applicable or unspecified (principal); O69.81X0 Labor and delivery complicated by cord around neck, without compression, not applicable or unspecified; O90.81 Anemia of the puerperium; D62 Acute posthemorrhagic anemia; D64.9 Anemia, unspecified; Z37.0 Single live birth; Z3A.36 36 weeks gestation of pregnancy
CPT/HCPCS: 36415; 85025; 86850; 86900; 86901; 99212

== ENCOUNTER 2019-12-04 11:20 | Emergency (ER) | payer BC, MEDICAID ==
[~2019-12-04] VITALS: Ht 170 cm; Wt 58.3 kg
[~2019-12-04 11:20] MED LIST: ACHD5005 PO; DOCU100C37 PO; FERR325T18 PO; IBUP-844 PO
--- OUTSIDE RECORDS SUMMARY | 2019-12-04 11:27 | XMS REPORT | Continuity of Care Document ---
Author Organization Unknown Address Unknown Phone Unavailable Allergies Active Description Code Type Severity Reaction Onset Reported/Identified Relationship to Patient Clinical Status Yes No Known Allergies No Known Allergies Drug Allergy Unknown N/A 12/21/2017 Medications There is no data. Problems There is no data. Procedures There is no data. Results Test Result Range WET MOUNT - 12/21/17 17:00 Microbiology GRAM STAIN - CHLAMYDIA DNA BY PCR - 05/02 17:00 Microbiology URINALYSIS, ROUTINE - 12/21/17 17:00 UA LEUKOCYTE ESTERASE DIPSTICK TRACE NEGATIVE UA NITRITE DIPSTICK NEGATIVE NEGATIVE UA PROTEIN DIPSTICK NEGATIVE NEGATIVE UA GLUCOSE DIPSTICK NEGATIVE NEGATIVE UA KETONE DIPSTICK NEGATIVE NEGATIVE UA UROBILINOGEN DIPSTICK NORMAL GRAYC L UA BILIRUBIN DIPSTICK NEGATIVE NEGATIVE UA BLOOD DIPSTICK NEGATIVE NEGATIVE UA SPECIFIC GRAVITY 1.006 1.015-1.02 5 UR PH 8.0 5.0-7.0 UA MICROSCOPIC - 12/21/17 17:00 UA BACTERIA 1+ NEGATIVE UA EPITHELIAL CELLS 2+ epi/hpf 0 - 1+ UA RBC 0-3 rbc/hpf 0 - 3 UA VOLUME FOR EXAM 12.0 mL (12mL STD) UA WBC 2-5 wbc/hpf 0 - 5 UR TEST - 12/21/17 17:00 UR TEST NEGATIVE NEGATIVE UR DRUGS OF ABUSE SCREEN - 12/21/17 17:0 0 UR AMPHETAMINES SCREEN NEG (<1000 ng/mL) NEGATIVE UR BARBITURATE SCREEN NEG (< 200 ng/mL) NEGATIVE DRUGS OF ABUSE SCREEN COMMENT UR OPIATES SCREEN NEG (< 300 ng/mL) NE GATIVE UR PHENCYCLIDINE (PCP) SCREEN NEG (< 25 ng/mL) NEGATIVE UR CANNABINOIDS (THC) SCREEN NEG (< 50 ng/mL) NEGATIVE UR COCAINE METABOLITE SCREEN NEG (< 300 ng/mL) NEGATIVE UR METHADONE SCREEN NEG (< 300 ng/mL) NEGATIVE UR BENZODIAZEPINE SCREEN NEG (< 200 ng/mL) NEGATIVE HIV - 12/21/17 17:34 AB HIV 1 2 NEGATIVE NEGATIVE HIV 1 P24 AG NEGATIVE NEGATIVE RAPID PLASMA REAGIN - 12/21/17 17:34 RAPID PLASMA REAGIN NONREACTIVE NONREAC TIVE Encounters ACCT No. Visit Date/Time Discharge Status Pt. Type Provider Facility Loc./Unit Complaint [id number] 07/12/2019 08:00:00 07/12/2019 23:59:5 9 CLS Outpatient MARCIA NOEMY [facility] [id number] 12/21/2017 16:21:00 018 17:53:00 DIS Emergency Gwendolyn GENTILE, [facility] NEW
--- NOTE | 2019-12-04 11:35 | ED General ---
General Chief Complaint: Dizziness/Syncope Stated Complaint: NAUSEA,RT HIP PAIN History of Present Illness Date Seen by Provider: Dec 04, 2019 Time Seen by Provider: 11:25 Initial Comments This patient is a 19-year-old female presents to the emergency department with a complaint of a little bit of nausea and sometimes dizziness. Patient is not related to any significant illness. Patient states been ongoing off and on for the past couple weeks. Patient states she has normal. Last period was one week ago has no history of anemia states her periods also, light at times. Patient does not appear to be acutely sick. Patient states she woke up this morning complaining of right hip pain when she moves it but denies any injury or popping sound. We'll do medical evaluation treatment is needed. Timing/Duration: 1 Week, Resolved Prior to Arrival Associated Systoms: Denies Symptoms; No Chest Pain, No Cough, No Diaphoresis, No Fever/Chills, No Headaches, No Loss of Appetite, No Malaise, No Nausea/Vomiting, No Rash, No Seizure, No Shortness of Air, No Syncope, No Weakness, No Other Allergies and Home Medications Allergies Coded Allergies: No Known Drug Allergies (Unverified , 09/05/18) Home Medications Docusate Sodium 100 Mg Capsule, 100 MG PO BID PRN for CONSTIPATION-1ST LINE Prescribed by: ALETHEA LOVE on 09/10/18809 Ferrous Sulfate 325 Mg Tablet, 325 MG PO DAILY@0700 Prescribed by: ALETHEA LOVE on 09/10/18809 Hydrocodone Bit/Acetaminophen 1 Tab Tab, 1 TAB PO Q4H PRN for PAIN-MODERATE Prescribed by: ALETHEA LOVE on 09/10/18809 Ibuprofen 600 Mg Tablet, 600 MG PO Q6H Prescribed by: ALETHEA LOVE on 09/10/18809 Patient Home Medication List Home Medication List Reviewed: Yes Review of Systems Review of Systems Constitutional: no symptoms reported, dizziness EENTM: No see HPI, No no symptoms reported, No ear discharge, No hearing loss, No ear pain, No blurred vision, No double vision, No eye pain, No tearing, No vision loss, No dental problems, No hoarseness, No mouth pain, No mouth swelling, No epistaxis, No nose congestion, No nose pain, No throat pain, No throat swelling, No other Respiratory: No no symptoms reported, No see HPI, No cough, No dyspnea on exertion, No hemoptysis, No orthopnea, No phlegm, No short of breath, No stridor, No wheezing, No other Cardiovascular: No no symptoms reported, No see HPI, No chest pain, No edema, No Hx of Intervention, No palpitations, No syncope, No vascular heart diseas, No other Gastrointestinal: No RUQ, No LUQ, No RLQ, No LLQ, No no symptoms reported, No see HPI, No abdominal pain, No constipation, No diarrhea, No dysphagia, No hematemesis, No heartburn, No jaundice, No loss of appetite, No melena; nausea; No vomiting, No other Genitourinary: No no symptoms reported, No see HPI, No decreased output, No discharge, No dysuria, No frequency, No hematuria, No hesitancy, No incontinence, No nocturia, No pain, No other Musculoskeletal: No no symptoms reported, No see HPI, No back pain, No gout, No joint pain, No joint swelling, No muscle pain, No muscle stiffness, No muscle cramps, No muscle twitching, No muscle weakness, No neck pain, No other Skin: No no symptoms reported, No see HPI, No change in color, No change in hair/nails, No dryness, No hx of skin cancer, No lesions, No lumps, No pruritus, No rash, No other Psychiatric/Neurological: Denies No Symptoms Reported; See HPI; Denies Anxiety, Denies Depressed, Denies Emotional Problems, Denies Headache, Denies Numbness, Denies Paresthesia, Denies Pre-Existing Deficit, Denies Seizure, Denies Tingling, Denies Tremors, Denies Weakness, Denies Other All Other Systems Reviewed Negative Unless Noted: Yes (Negative excepted noted.) Past Rpsceff-Lhuxdp-Rmwyrb Hx Patient Social History Recent Hopitalizations: No Immunizations Up To Date Date of Influenza Vaccine: Aug 15, 2018 Seasonal Allergies Seasonal Allergies: No Past Medical History Surgeries: Yes (MIDDLE LEFT TOE ) Respiratory: No Cardiac: No Neurological: Yes Genitourinary: No Gastrointestinal: No Endocrine: No HEENT: No Cancer: No Psychosocial: Yes Anxiety Integumentary: No Blood Disorders: No Adverse Reaction/Blood Tranf: No Family Medical History Asthma 19 MOTHER Cervical cancer 19 MOTHER Physical Exam Vital Signs Vital Signs - First Documented 12/04/19 11:26 Temp 36.1 Pulse 70 Resp 16 B/P (MAP) 116/74 (88) Pulse Ox 99 Capillary Refill : Height, Weight, BMI Height: 5'8.00" Weight: 174lbs. 6.0oz. 79.690093ib; 26.5 BMI Method: General Appearance: No Apparent Distress, WD/WN HEENT: PERRL/EOMI, TMs Normal, Normal ENT Inspection, Pharynx Normal Neck: Full Range of Motion, Normal Inspection, Non Tender, Supple, Carotid Bruit Respiratory: Chest Non Tender, Lungs Clear, Normal Breath Sounds, No Accessory Muscle Use, No Respiratory Distress Cardiovascular: Regular Rate, Rhythm, No Edema, No Gallop, No JVD, No Murmur, Normal Peripheral Pulses Gastrointestinal: Normal Bowel Sounds, No Organomegaly, No Pulsatile Mass, Non Tender, Soft Back: Normal Inspection, No CVA Tenderness, No Vertebral Tenderness Extremity: Normal Capillary Refill, Normal Inspection, Normal Range of Motion, Non Tender, No Calf Tenderness, No Pedal Edema Neurologic/Psychiatric: Alert, Oriented x3, No Motor/Sensory Deficits, Normal Mood/Affect Skin: Normal Color, Warm/Dry Progress/Results/Core Measures Suspected Sepsis SIRS Temperature: Pulse: Respiratory Rate: Blood Pressure / Mean: Results/Orders Lab Results Laboratory Tests Test 12/04/19 11:25 Range/Units Urine Color DARK YELLOW Urine Clarity CLOUDY H Urine pH 6.0 5-9 Urine Specific [place] >=1.030 1.016-1.022 Urine Protein NEGATIVE NEGATIVE Urine Glucose (UA) NEGATIVE NEGATIVE Urine Ketones NEGATIVE NEGATIVE Urine Nitrite NEGATIVE NEGATIVE Urine Bilirubin NEGATIVE NEGATIVE Urine Urobilinogen 0.2 < = 1.0 MG/DL Urine Leukocyte Esterase 2+ H NEGATIVE Urine RBC (Auto) NEGATIVE NEGATIVE Urine RBC NONE /HPF Urine WBC >100 H /HPF Urine Squamous Epithelial Cells 25-50 H /HPF Urine Crystals NONE /LPF Urine Bacteria MODERATE H /HPF Urine Casts NONE /LPF Urine Mucus LARGE H /LPF Urine Culture Indicated YES My Orders Orders - KEVIN ECHAVARRIA MD Urinalysis (12/04/19 11:31) Urine Bedside (12/04/19 11:31) Orthostatic Vital Signs (Adult (12/04/19 11:31) Meclizine Tablet (Antivert Tablet) (12/04/19 11:45) Hip 2-3 View Right (12/04/19 11:51) Urine Culture (12/04/19 11:25) Medications Given in ED Current Medications Medications Dose Ordered Sig/Alaina Route Start Time Stop Time Status Last Admin Dose Admin Meclizine HCl 25 mg ONCE ONCE PO 12/04/19 11:45 12/04/19 11:46 DC 12/04/19 11:41 25 MG Vital Signs/I&O 12/04/19 12/04/19 11:26 11:41 Temp 36.1 Pulse 70 58 66 63 Resp 16 B/P (MAP) 116/74 (88) 114/58 (76) 113/71 (85) 104/60 (75) Pulse Ox 99 Capillary Refill : Progress Note : Progress Note Patient has a urinary tract infection. Patient be treated with Keflex for the next 5 days. Vital signs are stable. X-rays of the right hip are negative. Patient given general instructions for rest ice alternating heat and ice. Some mild stretching exercises. Patient states understanding she'll also be given meclizine the nausea and dizziness. Patient is discharged Departure Impression Primary Impression: UTI (urinary tract infection) Additional Impressions: Dizziness Right hip pain Disposition: HOME, SELF-CARE Condition: Stable Departure-Patient Inst. Decision time for Depature: 12:09 Referrals: NO,LOCAL PHYSICIAN (PCP) Primary Care Physician Patient Instructions: Hip Pain (DC), Urinary Tract Infection, Adult (DC), Dizziness, Nonvertigo, (DC) Add. Discharge Instructions: Encourage by mouth fluids, Keflex as prescribed for urinary tract infection. For right hip pain alternate heat and ice in the mild stretching exercises. Limit activity as tolerated. Follow-up with your PCP in 2-3 days. Meclizine as needed for dizziness and nausea. All discharge instructions reviewed with patient and/or family. Voiced understanding. Scripts Meclizine HCl (Meclizine HCl) 12.5 Mg Tablet 12.5 MG PO 3 times a day for 7 Days, #20 TAB 0 Refills Prov: KEVIN ECHAVARRIA MD 12/04/19 Cephalexin (Keflex) 500 Mg Capsule 500 MG PO BID for 5 Days, #10 CAP 0 Refills Prov: KEVIN ECHAVARRIA MD 12/04/19 Diclofenac Sodium (Diclofenac Sodium) 75 Mg Tablet.dr 75 MG PO BID for 10 Days, #20 TAB 0 Refills Prov: KEVIN ECHAVARRIA MD 12/04/19 KEVIN ECHAVARRIA MD Dec 04, 2019 11:35
[2019-12-04 11:41] VITALS: BP_SYST 104; BP_SYST 113; BP_SYST 114; BP_DIAS 58; BP_DIAS 60; BP_DIAS 71
[2019-12-04] MEDS ORDERED: MECLIZINE 25 MG (ANTIVERT) TAB PO ONE (11:45)
[2019-12-04 11:56] LABS: BILIRUBIN,URINE NEGATIVE (NEGATIVE); CLARITY,URINE CLOUDY; COLOR,URINE DARK YELLOW; GLUCOSE, URINE (UA) NEGATIVE (NEGATIVE); KETONES,URINE NEGATIVE (NEGATIVE); NITRITE,URINE NEGATIVE (NEGATIVE); PROTEIN,URINE NEGATIVE (NEGATIVE)
[2019-12-04 11:57] LABS: BACTERIA,URINE MODERATE /HPF; LEUKOCYTE ESTERASE ,URINE 2+ (NEGATIVE); SQUAMOUS EPITHELIAL CELL,UR 25-50 /HPF; WBC,URINE >100 /HPF
[2019-12-04] MEDS ORDERED: MECL-172 PO (12:12)
[2019-12-04] MEDS ORDERED: DICL75TA2 PO (12:12)
[2019-12-04] MEDS ORDERED: CEPH-507 PO (12:12)
--- NOTE | 2019-12-04 12:21 | Diagnostic Imaging Report ---
HISTORY: Right hip pain for 3 months. No known injury. COMPARISON: None TECHNIQUE: 2 views of the right hip FINDINGS: No acute fracture or dislocation is seen in the right hip. Alignment appears normal. The joint spaces preserved. There is lucency in the region of the right greater trochanter measuring 1.8 cm in diameter, which appears well-circumscribed. This could also represent artifact from overlap, particularly if the patient was in external rotation, however the patient was reportedly in internal rotation. IMPRESSION: 1. No acute osseous abnormality is seen in the right hip. 2. Focal circumscribed lucency in the trochanteric region of the right femur. This is seen on one view, and may be artifactual, however consider nonemergent cross-sectional imaging for further evaluation. Dictated by: Dictated on workstation # [id number]
== END 2019-12-04 12:18 | disposition home or self-care (01) ==
LOC: EDUNIT# 11:20 → ER FS 11:23
DX: N39.0 Urinary tract infection, site not specified (principal); R42 Dizziness and giddiness; M25.551 Pain in right hip; Z80.8 Family history of malignant neoplasm of other organs or systems
CPT/HCPCS: 73502; 81000; 84703; 87088

== ENCOUNTER → 2020-08-15 | Outpatient (CLI) | payer BC ==
[~2020-08-15] MED LIST changes: +CEPH-507 PO; +DICL75TA2 PO; +MECL-172 PO
== END ==
LOC: LABNPT 06:26
PROVIDERS: ATTEND Internal Medicine Gastroenterology
DX: Z01.812 Encounter for preprocedural laboratory examination (principal); Z53.9 Procedure and treatment not carried out, unspecified reason

== ENCOUNTER → 2020-08-16 | Outpatient (CLI) | payer BC | LOC: LABNPT 08:35 | PROVIDERS: ATTEND Internal Medicine Gastroenterology | DX: Z01.812 Encounter for preprocedural laboratory examination (principal); Z20.828 Contact with and (suspected) exposure to other viral communicable diseases | CPT/HCPCS: 87635 ==

== ENCOUNTER → 2020-10-13 | Outpatient (CLI) | payer BC ==
[~2020-10-13] MED LIST changes: +CATHETER FLUSH 10 ML SYR IV PRN; +HOLD METFORMIN - RECEIVED CONTRAST 20 ML VIAL IV SCH; +IOHEXOL 350 MG/ML 100 ML (OMNIPAQUE 350) VIAL IV ONE; -MECL-172 PO; +MECL-173 PO; +NS 100 ML (IVPB) BAG IV ONE
--- NOTE | 2020-10-13 08:37 | Diagnostic Imaging Report ---
PROCEDURE: CT abdomen and pelvis with contrast. TECHNIQUE: Multiple contiguous axial images were obtained through the abdomen and pelvis after administration of intravenous contrast. Auto Exposure Controls were utilized during the CT exam to meet ALARA standards for radiation dose reduction. All CT scans use one or more of the following dose optimizing techniques: automated exposure control, MA and/or KvP adjustment based on patient size and exam type or iterative reconstruction. INDICATION: Epigastric pain Lung bases are clear. Liver appears normal. Gallbladder is unremarkable. Portal vein is patent. Common duct is not dilated. Pancreas is normal. Spleen is not enlarged. Kidneys and adrenals appear normal. Aorta and visceral vascular structures appear normal. Small bowel is not dilated. Colon is unremarkable. The appendix is not discretely identified but there are no secondary signs of appendicitis. Uterus is present. Adnexa are unremarkable. There is no intraperitoneal free air or free fluid. IMPRESSION: Unremarkable CT abdomen and pelvis. Dictated by: Dictated on workstation # [id number]
== END ==
LOC: RAD 07:45
PROVIDERS: ATTEND Internal Medicine Gastroenterology
DX: R10.13 Epigastric pain (principal)
CPT/HCPCS: 74177